=== PATIENT | female | born 1945 | race Caucasian/White ===

== ENCOUNTER 2024-11-13 11:24 | Outpatient (AMB) | payer OTHER, SELFPAY ==
--- NOTE | 2024-11-13 11:28 | A.OFFPC_ITS ---
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 Manager Required: No Accompanied by: Self / Same As Patient Allergies codeine Allergy (Mild, Verified 11/13/24 11:45) Nausea latex Allergy (Mild, Verified 11/13/24 11:45) Rash levofloxacin (From Levaquin) Allergy (Mild, Verified 11/13/24 11:45) Nausea and Vomiting methotrexate Allergy (Mild, Verified 11/13/24 11:45) Nausea morphine Allergy (Mild, Verified 11/13/24 11:45) advers reaction mupirocin (From Bactroban) Allergy (Mild, Verified 11/13/24 11:45) Rash Medication List - Last Reconciled 11/13/24 by Tito Collier MD esomeprazole magnesium (Nexium) 40 mg PO DAILY gabapentin 400 mg PO TID hydrochlorothiazide 25 mg PO DAILY leflunomide 20 mg PO DAILY lisinopril 40 mg PO DAILY Tobacco use date assessed: 11/13/24 Fall risk assessment: 2 + Falls in past year Last assessed Fall Risk: 11/13/24 Dental Screening Dental Screen Date: 11/13/24 Did you have a dental visit in the last 12 months?: No Did you have a dental problem in the last 6 months where you did not have access to dental care?: No Was dental information given to patient?: No HPI HPI Comments History of Present Illness Details History of Present Illness The patient is a 79-year-old female presenting for establishment of care and management of multiple chronic conditions. Gastroesophageal Reflux Disease (GERD): - Long-standing GERD managed with esomep razole magnesium, occasional dysphagia, multiple endoscopies performed. Neuropathy: - Neuropathy confirmed by specialist, si gnificant symptoms in feet, managed with gabapentin. Scoliosis and Spinal Stenosis: - Scoliosis and spinal stenosis causing neck and back pain, advised to limit neck movement due to audible popping. Rheumatoid Arthritis: - Long-standing rheumatoid arthritis wit h hand and foot involvement, tried leflunomide and Rinvoq with limited success. Hypertension: - Managed with hydrochlorothiazide and l isinopril. Cataracts: - Early-stage cataracts, no immediate ruiz rgical intervention needed. Pterygium: - Pterygium likely due to sun exposure, no current treatment required. History of Shingles: - Shingles four years ago, resulting in leg scarring. Health Maintenance Review of Systems - Gastrointestinal: Reports occasional d ysphagia. - Neurological: Reports weakness in arms and legs during grocery shopping, difficulty with full extension of arms due to pain. - Musculoskeletal: Reports significant p ain and deformity in hands and feet due to rheumatoid arthritis. - Ophthalmologic: Reports double vision and early-stage cataracts. 10-point ROS reviewed and negative excep t as noted in HPI Allergies Codeine Latex Levofloxacin Methotrexate Morphine mupirocin Medications - Esomeprazole magnesium (Nexium) for Ga stroesophageal Reflux Disease (GERD) - Gabapentin for neuropathy - Hydrochlorothiazide for hypertension - Lisinopril for hypertension - Leflunomide for rheumatoid arthritis Medication History - Rinvoq for rheumatoid arthritis, tried with limited success Past Medical History - Gastroesophageal Reflux Disease (GERD) - Neuropathy - Scoliosis - Spinal Stenosis - Rheumatoid Arthritis - Hypertension - Cataracts - Pterygium - History of Shingles Past Surgical History - Left foot reconstruction with screws, nuts, bolts, and plates - Knee replacements, one 10 years ago an d the other 4 years ago Social History - The patient is a , having lost he r to pancreatic and bone cancer. - She has moved from [place] to live with her daughter in [place]. - The patient has a history of being phy sically active, previously a bowler, but now limited due to arthritis. - She uses a cane for mobility due to sc oliosis and rheumatoid arthritis. Physical Exam General: No apparent distress. Alert and oriented x 3. Head:Normocephalic, atraumatic Eyes: Pupils equal, round, and reactive to light. Presence of pterygium in the right eye. Extraocular movements intact Throat: Oropharynx clear. Missing teeth noted.oropharynx clear. Mucus membranes moist Neck: Supple. No lymphadenopathy. Audible popping noted.left anterior descending artery distention. No jugular vein distention. No bruit. Cardiovascular: Regular rate and rhythm. Normal S1 and S2. No murmurs.murmurs, rubs, or gallops Lungs: Clear to auscultation bilaterally. Breath sounds equal bilaterally. No rales, ronchi, or wheezes. Abdomen: Non-tender. Non-distended. Bowel sounds auscultated. No masses.hepatosplenomegaly. No mass/rebound/guarding Extremities: No clubbing, cyanosis, or edema. Presence of rheumatoid nodules on the right hand (pinky finger and thumb) and left hand (wrist and pointer finger). Protrusion of bone on the midfoot of the left foot. Crossover toe noted.clubbing, cyanosis, and edema. 2+ pulses Neuro: Central nerves II-XII grossly intact. Motor/sensory intact. Reflexes 2+. Gait normal with the use of a cane due to scoliosis and rheumatoid arthritis. Skin: Warm, dry, and intact. No rash. Scars from previous shingles noted on legs . Discussion Notes I discussed the patient's current medications and the need for referrals to podiatry and rheumatology. We also talked about the possibility of pain management options, including epidurals, but the patient decided to hold off for now. I will review her previous lab work and bone density test results from [place] and determine if further testing is needed. The patient was advised to follow up with an traditional chinese herbalist for her vision issues and to monitor the pterygium with an assembler fishing floats. Plan 1. Gastro-esophageal reflux disease with out esophagitis K21.9 - Continue esomeprazole magnesium for ma nagement. 2. Polyneuropathy, unspecified G62 .9 - Continue gabapentin for symptom manage ment. 3. Scoliosis, unspecified M41.9 - Monitor symptoms and consider pain man agement options if needed. 4. Rheumatoid arthritis, unspecified M06.9 HCC 40 - Referral to rheumatology for further m anagement and potential adjustment of medications. 5. Essential (primary) hypertension I10 - Continue current antihypertensive latoya men with hydrochlorothiazide and lisinopril. 6. Unspecified cataract H26.9 - Follow up with traditional chinese herbalist for vision assessment and monitoring. 7. Unspecified pterygium of unspecified eye H11.009 - Monitor with assembler fishing floats, no immed iate intervention required. 8. Personal history of other infectious and parasitic diseases Z86.19 - No current treatment required, monitor for any recurrence. Treatment Summary Anticapatory Guidance Patient Instructions - Continue taking your current medicatio ns as prescribed. - Follow up with the aeronautical drafter and rheu matologist as referred. - Schedule an appointment with an optome trist for your vision issues. - Monitor the pterygium with an ophthalm ologist. - Contact the clinic if you experience a ny new or worsening symptoms. PFSH Family History (Updated 11/13/24 @ 11:53 by Lillian Padgett MA) Father Diabetes Heart attack Mother Diabetes Stroke Social History (Updated 11/13/24 @ 11:33 by Lillian Padgett MA) Housing: House Alcohol intake: current Alcohol intake frequency: does not drink Patient Tobacco Use Status: Never used Tobacco service: No Current occupational status: retired and disabled Cognitive needs: Yes (cane and walker) Hearing needs: No Vision needs: Yes (rx glasses) Questionnaire PHQ-9 Over the last 2 weeks, how often have you been bothered by any of the following problems? 1. Little interest or pleasure in doing things: not at all 2. Feeling down, depressed, or hopeless: not at all 3. Trouble falling or staying asleep, or sleeping too much: not at all 4. Feeling tired or having little energy: nearly every day 5. Poor appetite or overeating: not at all 6. Feeling bad about yourself - or that you are a failure or have let yourself or your family down: not at all 7. Trouble concentrating on things, such as reading the newspaper or watching television: not at all 8. Moving or speaking so slowly that other people could have noticed. Or the opposite - being so fidgety or restless that you have been moving around a lot more than usual: not at all 9. Thoughts that you would be better off or of hurting yourself in some way: not at all Total score: 3 Depression Screening Interpretation: Negative Depression Screening Done: Yes Source: Developed by Drs. Omari Keenan, Philly Doyle, See Saucedo and colleagues, with an educational eligio from [employer]. Thrive Questionnaire Date Thrive assessed: 11/13/24 I am a: Patient What is your living situation today?: I have a steady place to live Within the past 12 months, did the food you bought not last and you didn't have the money to get more?: I choose not to answer this question Within the past 12 months, did you worry whether your food would run out before you got money to buy more?: Never true Do you have trouble paying for medicines?: No Do you have trouble getting transportation to medical appointments?: No Do you have trouble paying your heating and electricity bill?: No Do you have trouble taking care of your child, family member or friend?: No Are you currently unemployed and looking for a job?: No Are you interested in more education?: No Please select the resources that you would like help with: None Currently or been in a relationship where the following occur: No concerns reported THRIVE Score: 0 AUDIT C Alcohol Use Questionnaire (AUDIT-C) 1. How often do you have a drink containing alcohol?: Never 3. How often do you have six or more drinks on one occasion?: Never Total Score: 0 TONY-7 AMB Questionnaire TONY-7 Date TONY - 7 assessed: 11/13/24 Feeling nervous, anxious, or on edge: 0 = Not at all Not being able to stop or control worryin = Not at all Worrying too much about different things: 0 = Not at all Trouble relaxin = Not at all Being so restless that it is hard to sit still: 0 = Not at all Becoming easily annoyed or irritable: 0 = Not at all Feeling afraid as if something awful might happen: 0 = Not at all Total TONY-7 score (0-4 normal; 5-9 mild; 10-14 moderate; 15-21 severe): 0 Source: Developed by Drs. Omari Keenan, Philly Doyle, See Saucedo and colleagues, with an educational eligio from [employer]. Physical exam (Primary Care) Tobacco/Smoking Status: Tobacco use Status Tobacco use date assessed 11/13/24 11/13/24 11:33 Patient Tobacco Use Status Never used Tobacco 11/13/24 11:33 PHQ-9: PHQ-9 Score PHQ-9: Total score 3 11/13/24 11:33 Depression Screening Interpretation: Negative Thrive Assessment: Date of Thrive Assessment Date Thrive assessed 11/13/24 11/13/24 11:33 Currently or been in a relationship where the following occur: No concerns reported Coding Level of Care Code New Pt Level 3 (77475) Diagnoses Encounter to establish care with new provider Z76.89 Routine lab draw Z01.89 Encounter for screening, unspecified Z13.9 Counseling, unspecified Z71.9 Primary hypertension I10 Hypertension type: primary hypertension Gastroesophageal reflux disease without esophagitis K21.9 Esophagitis presence: without esophagitis Rheumatoid arthritis involving multiple sites, unspecified whether rheumatoid factor present M06.9 Rheumatoid arthritis location: multiple sites Rheumatoid factor presence: unspecified presence Class 1 obesity E66.811 Scoliosis M41.9 Scoliosis type: unspecified scoliosis Spinal region: unspecified Rheumatoid nodules M06.30 History of ankle surgery Z98.890 Cataract H26.9 Cataract type: age-related Age-related cataract type: unspecified Laterality: unspecified laterality Impaired gait and mobility R26.89 Use of cane as ambulatory aid Z99.89 Assessment & Plan Assessment & Plan (1) Encounter to establish care with new provider: Code(s): Z76.89 - Persons encountering health services in other specified circumstances (2) Routine lab draw: Code(s): Z01.89 - Encounter for other specified special examinations (3) Encounter for screening, unspecified: Code(s): Z13.9 - Encounter for screening, unspecified (4) Counseling, unspecified: Code(s): Z71.9 - Counseling, unspecified (5) Hypertension: Code(s): I10 - Essential (primary) hypertension Qualifiers: Hypertension type: primary hypertension Qualified Code(s): I10 - Essential (primary) hypertension (6) GERD (gastroesophageal reflux disease): Code(s): K21.9 - Gastro-esophageal reflux disease without esophagitis Qualifiers: Esophagitis presence: without esophagitis Qualified Code(s): K21.9 - Gastro-esophageal reflux disease without esophagitis (7) Rheumatoid arthritis: Code(s): M06.9 - Rheumatoid arthritis, unspecified Qualifiers: Rheumatoid arthritis location: multiple sites Rheumatoid factor presence: unspecified presence Qualified Code(s): M06.9 - Rheumatoid arthritis, unspecified (8) Class 1 obesity: Code(s): E66.811 - Obesity, class 1 (9) Scoliosis: Code(s): M41.9 - Scoliosis, unspecified Qualifiers: Scoliosis type: unspecified scoliosis Spinal region: unspecified (10) Rheumatoid nodules: Code(s): M06.30 - Rheumatoid nodule, unspecified site (11) History of ankle surgery: Code(s): Z98.890 - Other specified postprocedural states (12) Cataract: Code(s): H26.9 - Unspecified cataract Qualifiers: Cataract type: age-related Age-related cataract type: unspecified Laterality: unspecified laterality (13) Impaired gait and mobility: Code(s): R26.89 - Other abnormalities of gait and mobility (14) Use of cane as ambulatory aid: Code(s): Z99.89 - Dependence on other enabling machines and devices Plan Orders: Orders Vitamin D 1,25 dihydroxy Today Z13.9 - Encounter for screening, unspecified, Z76.89 - Persons encountering health services in other specified circumstances Hepatitis C Antibody Today Z13.9 - Encounter for screening, unspecified, Z76.89 - Persons encountering health services in other specified circumstances Hepatitis B Surface Antigen Today Z13.9 - Encounter for screening, unspecified, Z76.89 - Persons encountering health services in other specified circumstances Hepatitis B Surface Antibody Today Z13.9 - Encounter for screening, unspecifi ed, Z76.89 - Persons encountering health services in other specified circumstances Hemoglobin A1c Today Z13.9 - Encounter for screening, unspecified, Z76.89 - Persons encountering health services in other specified circumstances Complete Blood Count Auto Diff Today Z13.9 - Encounter for screening, unspecified, Z76.89 - Persons encountering health services in other specified circumstances Vitamin B12 and Folate Today Z13.9 - Encounter for screening, unspecified, Z76.89 - Persons encountering health services in other specified circumstances UA CC w/rflx Micro + Cult Today Z13.9 - Encounter for screening, unspecified, Z76.89 - Persons encountering health services in other specified circumstances Magnesium Today Z13.9 - Encounter for screening, unspecified, Z76.89 - Persons encountering health services in other specified circumstances HIV Ab/Ag Today Z13.9 - Encounter for screening, unspecified, Z76.89 - Persons encountering health services in other specified circumstances Comprehensive Met. Panel Today Z13.9 - Encounter for screening, unspecified, Z76.89 - Persons encountering health services in other specified circumstances Referrals Podiatry Referral M06.9 - Rheumatoid arthritis, unspecified Ophthalmology Referral H26.9 - Unspecified cataract Rheumatology Referral M06.9 - Rheumatoid arthritis, unspecified
[2024-11-13 11:54] VITALS: BP 120/80; PULSE 66; RESP 16; TEMP 36.5; O2SAT 94; BMI 30.2
--- OUTSIDE RECORDS SUMMARY | 2024-11-13 15:35 | XMS_ITS ---
Author Name Chantel FloresNatalie Address [address] [place] [id number] Phone [phone] Organization [facility] Care Team Providers Care Calendar Control Clerk [facility] Name Role Phone Natalie Golden Unavailable [phone] Reason for Referral Not Available Allergies, adverse reactions, alerts Allergen Type Reaction Severity Status Onset Date Latex Allergy to substance (disorder) rash Unknown Active N/A Levaquin Allergy to substance (disorder) rash , dizziness , headache Unknown Active N/A Codeine Allergy to substance (disorder) nausea Unknown Active N/A Sulfa Allergy to substance (disorder) vomitting Unknown Active N/A Morphine Allergy to substance (disorder) General anesthesia Unknown Active N/A Methotrexate Allergy to substance (disorder) nausea , stomach cramps Unknown Active N/A Tobrex Allergy to substance (disorder) Burning Unknown Active N/A Bactroban Allergy to substance (disorder) swelling Unknown Active N/A Bacitracin Allergy to substance (disorder) Swelling, Burning Unknown Active N/A AK-Tracin Allergy to substance (disorder) swelling burning Unknown Active N/A History of medication use Medication Class Instructions Start Date End Date Leflunomide 20 mg Tab 1 tablet orally daily 2024-06-08 No Data Available Lisinopril 40 mg Tab 1 tablet orally daily 2024-06-08 No Data Available Atorvastatin Calcium 40 mg Tab 1 tablet orally daily in the evening 2024-06-08 2024-07-06 NexIUM 40 mg Cap delayed rel 1 capsule orally daily 23-06-09 No Data Available Gabapentin 400 mg Cap 1 capsule orally 3 times per day 2024-06-08 No Data Available hydroCHLOROthiazide 25 mg Tab TAKE 1 TABLET DAILY 2024 No Data Available Tylenol 8hr Arthritis Pain 6 50 mg Tab ER 1 tablet orally twice a day, prn 2024-06-08 No Data Available Multivitamin 1 tab PO Daily 2024-06-08 No Data Avail able Probiotic 1 tablet daily 2024-06-08 No Data Avail able Atorvastatin Calcium 40 mg Tab 1 tab PO daily No Data Available Rinvoq 15 mg Tab ER 24hr Take 1 tab by m outh daily 2024-08-04 No Data Available Ezetimibe 10 mg Tab 1 tablet orally daily 2024-10-06 No Data Available Problem List Problem Status Onset Date Resolved Date Synopsis Lumbar radicular pain Active 2024-06-08 N/A N/A Lumbar spondylosis Active 2024-06-08 N/A N/A Hyperlipidemia Active 2024-06-08 N/A N/A Osteoporosis Active 2024-06-08 N/A N/A Left foot drop Active 2024-06-08 N/A N/A Rheumatoid arthritis without rheumatoid factor of multiple sites without organ or systems involvement Active 2024-06-08 N/A N/A Encounters Encounters Type Facility Date of Service Diagnosis/Co mplaint new patient, moderate complexity office visit [facility] 06/08/2024 Rheumatoid arthritis without rheumatoid factor, unspecified sitePain in right hipPain in left hipSpinal stenosis, lumbar region without neurogenic claudicationRepeated fallsAsymptomatic menopausal stateDisorder of kidney and ureter, unspecified new patient, moderate complexity office visit [facility] 06/08/2024 Rheumatoid arthritis without rheumatoid factor, unspecified siteAsymptomatic menopausal state moderate complexity office visit [facility] 07/06/2024 Rheu arthrit w rheu factor o f unsp ank/ft w/o org/sys involvAbnormal results of kidney function studiesAge-related osteoporosis without current pathological fractureOther inadequate housing moderate complexity office visit [facility] 07/06/2024 Rheumatoid arthritis without rheumatoid factor, unspecified site Vital Signs Date of Collection Vitals 2024-06-08 14:00:00 Height - 165.1 cmWei ght - 76.66 kgBody Mass Index (BMI) - 28.12 kg/m2BP Diastolic - 68.0 mm[Hg]BP Systolic - 126.0 mm[Hg]Heart Rate - 81.0 /minBody Temperature - 16.67 CelO2 % BldC Oximetry - 94.0 %Pain Scale - 8.0 {score} 2024-07-06 14:20:00 BP Diastolic - 76.0 mm[Hg]BP Systolic - 116.0 mm[Hg]Heart Rate - 95.0 /minBody Temperature - 36.39 CelO2 % BldC Oximetry - 93.0 %Pain Scale - 10.0 {score} Social History Social History Social History Observation Description Effec tive Time Current Smoking Status Never smoker 2024-10-30 7 Sex Female History of Procedures Procedures Service Procedure code Service date Servicing provider Phone# new patient, moderate complexity office visit [id number] 2024-06-08 No Data Available No Data Availa ble (Add-on code) Visit complxty inherent to EM and management associated with medical care services that serve as the continuing focal point for all needed health care services [address] [id number] 2024-06-08 No Data Available No Data Availa ble moderate complexity office visit [id number] 2024-07-06 No Data Available No Data Availa ble (Add-on code) Visit complxty inherent to EM and management associated with medical care services that serve as the continuing focal point for all needed health care services [address] [id number] 2024-07-06 No Data Available No Data Availa ble Relevant diagnostic tests and/or laboratory data Laboratory Results Test Result Units Ref low Ref high Date Location Source MIKE SCREEN, IFA, W/REFL TITE R AND PATTERN MIKE SCREEN, IFA POSITIVE No Data Available NEGATIVE NEGATIVE 06-12 [facility] [address] [address] Phone: No Data Available MIKE SCREEN, IFA POSITIVE No Data Available NEGATIVE NEGATIVE 06-12 [facility] [address] [address] Phone: No Data Available ANTINUCLEAR ANTIBODIES TITER AND PATTERN MIKE TITER 1:40 No Data Available N/A N/A 06-12 [facility] [address] [address] Phone: No Data Available MIKE TITER 1:40 No Data Available N/A N/A 06-12 [facility] [address] [address] Phone: No Data Available MIKE PATTERN Cytoplasmic No Data Available N/A N/A 06-12 [facility] [address] [address] Phone: No Data Available MIKE PATTERN Cytoplasmic No Data Available N/A N/A 06-12 [facility] [address] [address] Phone: No Data Available MIKE TITER 1:80 No Data Available N/A N/A 06-12 [facility] [address] [address] Phone: No Data Available MIKE TITER 1:80 No Data Available N/A N/A 06-12 [facility] [address] [address] Phone: No Data Available MIKE PATTERN Nuclear, Homogeneous No Data Available N/A N/A 06-12 [facility] [address] [address] Phone: No Data Available MIKE PATTERN Nuclear, Homogeneous No Data Available N/A N/A 06-12 [facility] [address] [address] Phone: No Data Available C TELOPEPTIDE (CTX) C TELOPEPTIDE (CTX) 566 pg/mL N/A N/A 06-12 [facility] s/[address] [address] Phone: No Data Available C TELOPEPTIDE (CTX) 566 pg/mL N/A N/A 06-12 [facility] , [address] [place] [address] Phone: No Data Available C-REACTIVE PROTEIN C-REACTIVE PROTEIN 3.2 mg/L No Data Available 8.0 06-12 [facility] [address] [address] Phone: No Data Available C-REACTIVE PROTEIN 3.2 mg/L No Data Available 8.0 06-12 [facility]-[place] [address] Phone: No Data Available CALCIUM CALCIUM 10.3 mg/dL 8.6 10.4 06-12 [facility] [address] [address] Phone: No Data Available CALCIUM 10.3 mg/dL 8.6 10.4 06-12 [facility] [address] [address] Phone: No Data Available CBC (INCLUDES DIFF/PLT) WHITE BLOOD CELL COUNT 4.9 Thousand/uL 3.8 10.8 06-12 [facility] [address] [address] Phone: No Data Available WHITE BLOOD CELL COUNT 4.9 Thousand/uL 3.8 10.8 06-12 [facility] [address] [address] Phone: No Data Available RED BLOOD CELL COUNT 4.25 Million/uL 3.80 5.10 06-12 [facility] [address] [address] Phone: No Data Available RED BLOOD CELL COUNT 4.25 Million/uL 3.80 5.10 06-12 [facility] [address] [address] Phone: No Data Available HEMOGLOBIN 12.3 g/dL 11.7 15.5 06-12 [facility] [address] [address] Phone: No Data Available HEMOGLOBIN 12.3 g/dL 11.7 15.5 06-12 [facility] [address] [address] Phone: No Data Available HEMATOCRIT 39.9 % 35.0 45.0 06-12 [facility] [address] [address] Phone: No Data Available HEMATOCRIT 39.9 % 35.0 45.0 06-12 [facility] [address] [address] Phone: No Data Available MCV 93.9 fL 80.0 100.0 06-12 [facility] [address] [address] Phone: No Data Available MCV 93.9 fL 80.0 100.0 06-12 [facility] [address] [address] Phone: No Data Available MCH 28.9 pg 27.0 33.0 06-12 [facility] [address] [address] Phone: No Data Available MCH 28.9 pg 27.0 33.0 06-12 [facility] [address] [address] Phone: No Data Available MCHC 30.8 g/dL 32.0 36.0 06-12 [facility] [address] [address] Phone: No Data Available MCHC 30.8 g/dL 32.0 36.0 06-12 [facility] [address] [address] Phone: No Data Available RDW 13.1 % 11.0 15.0 06-12 [facility] [address] [address] Phone: No Data Available RDW 13.1 % 11.0 15.0 06-12 [facility] [address] [address] Phone: No Data Available PLATELET COUNT 278 Thousand/uL 140 400 202 06-12 [facility] [address] [address] Phone: No Data Available PLATELET COUNT 278 Thousand/uL 140 400 202 06-12 [facility] [address] [address] Phone: No Data Available MPV 12.1 fL 7.5 12.5 06-12 [facility] [address] [address] Phone: No Data Available MPV 12.1 fL 7.5 12.5 06-12 [facility] [address] [address] Phone: No Data Available ABSOLUTE NEUTROPHILS 3004 cells/uL 1500 7800 06-12 [facility] [address] [address] Phone: No Data Available ABSOLUTE NEUTROPHILS 3004 cells/uL 1500 7800 06-12 [facility] [address] [address] Phone: No Data Available ABSOLUTE LYMPHOCYTES 1142 cells/uL 850 3900 06-12 [facility] [address] [address] Phone: No Data Available ABSOLUTE LYMPHOCYTES 1142 cells/uL 850 3900 06-12 [facility] [address] [address] Phone: No Data Available ABSOLUTE MONOCYTES 515 cells/uL 590 569 4783- 04-14 [facility] [address] [address] Phone: No Data Available ABSOLUTE MONOCYTES 515 cells/uL 184 238 5786- 04-14 [facility] [address] [address] Phone: No Data Available ABSOLUTE EOSINOPHILS 191 cells/uL 15 500 06-12 [facility] [address] [address] Phone: No Data Available ABSOLUTE EOSINOPHILS 191 cells/uL 15 500 06-12 [facility] [address] [address] Phone: No Data Available ABSOLUTE BASOPHILS 49 cells/uL 0 200 06-12 [facility] [address] [address] Phone: No Data Available ABSOLUTE BASOPHILS 49 cells/uL 0 200 06-12 [facility] [address] [address] Phone: No Data Available NEUTROPHILS 61.3 % N/A N/A 06-12 [facility] [address] [address] Phone: No Data Available NEUTROPHILS 61.3 % N/A N/A 06-12 [facility] [address] [address] Phone: No Data Available LYMPHOCYTES 23.3 % N/A N/A 06-12 [facility] [address] [address] Phone: No Data Available LYMPHOCYTES 23.3 % N/A N/A 06-12 [facility] [address] [address] Phone: No Data Available MONOCYTES 10.5 % N/A N/A 06-12 [facility] [address] [address] Phone: No Data Available MONOCYTES 10.5 % N/A N/A 06-12 [facility] [address] [address] Phone: No Data Available EOSINOPHILS 3.9 % N/A N/A 06-12 [facility] [address] [address] Phone: No Data Available EOSINOPHILS 3.9 % N/A N/A 06-12 [facility] [address] [address] Phone: No Data Available BASOPHILS 1.0 % N/A N/A 06-12 [facility] [address] [address] Phone: No Data Available BASOPHILS 1.0 % N/A N/A 06-12 [facility] [address] [address] Phone: No Data Available CREATININE CREATININE 0.99 mg/dL 0.60 1.00 06-12 [facility] [address] [address] Phone: No Data Available CREATININE 0.99 mg/dL 0.60 1.00 06-12 [facility] [address] [address] Phone: No Data Available EGFR 59 mL/min/1.73 m2 > OR = 60 > OR = 60 06-12 [facility] [address] [address] Phone: No Data Available EGFR 59 mL/min/1.73 m2 > OR = 60 > OR = 60 06-12 [facility] [address] [address] Phone: No Data Available CYCLIC CITRULLINATED PEPTIDE (CCP) AB (IGG) CYCLIC CITRULLINATED PEPTIDE (CCP) AB (IGG) 139 UNITS N/A N/A 06-12 [facility] [address] [address] Phone: No Data Available CYCLIC CITRULLINATED PEPTIDE (CCP) AB (IGG) 139 UNITS N/A N/A 06-[address] [facility] [address] [address] Phone: No Data Available HEPATIC FUNCTION PANEL PROTEIN, TOTAL 6.9 g/dL 6.1 8.1 06-12 [facility] [address] [address] Phone: No Data Available PROTEIN, TOTAL 6.9 g/dL 6.1 8.1 06-[address] [facility] [address] [address] Phone: No Data Available ALBUMIN 4.2 g/dL 3.6 5.1 06-12 [facility] [address] [address] Phone: No Data Available ALBUMIN 4.2 g/dL 3.6 5.1 06-12 [facility] [address] [address] Phone: No Data Available GLOBULIN 2.7 g/dL_(calc) 1.9 3.7 06-12 [facility] [address] [address] Phone: No Data Available GLOBULIN 2.7 g/dL_(calc) 1.9 3.7 06-12 [facility] [address] [address] Phone: No Data Available ALBUMIN/GLOBULI N RATIO 1.6 (calc) 1.0 2.5 06-12 [facility] [address] [address] Phone: No Data Available ALBUMIN/GLOBULI N RATIO 1.6 (calc) 1.0 2.5 06-12 [facility] [address] [address] Phone: No Data Available BILIRUBIN, TOTAL 0.6 mg/dL 0.2 1.2 06-12 [facility] [address] [address] Phone: No Data Available BILIRUBIN, TOTAL 0.6 mg/dL 0.2 1.2 06-12 [facility] [address] [address] Phone: No Data Available BILIRUBIN, DIRECT 0.1 mg/dL N/A N/A 06-12 [facility] [address] [address] Phone: No Data Available BILIRUBIN, DIRECT 0.1 mg/dL N/A N/A 06-12 [facility] [address] [address] Phone: No Data Available BILIRUBIN, INDIRECT 0.5 mg/dL_(calc ) 0.2 1.2 06-12 [facility] [address] [address] Phone: No Data Available BILIRUBIN, INDIRECT 0.5 mg/dL_(calc ) 0.2 1.2 06-12 [facility] [address] [address] Phone: No Data Available ALKALINE PHOSPHATASE 95 U/L 37 153 06-12 [facility] [address] [address] Phone: No Data Available ALKALINE PHOSPHATASE 95 U/L 37 153 06-12 [facility] [address] [address] Phone: No Data Available AST 25 U/L 10 35 06-12 [facility] [address] [address] Phone: No Data Available AST 25 U/L 10 35 06-12 [facility] [address] [address] Phone: No Data Available ALT 13 U/L 6 29 06-12 [facility] [address] [address] Phone: No Data Available ALT 13 U/L 6 29 06-12 [facility] [address] [address] Phone: No Data Available HEPATITIS B CORE AB TOTAL HEPATITIS B CORE AB TOTAL NON-REACTIVE No Data Available NON NON 06-12 [facility] [address] [address] Phone: No Data Available HEPATITIS B CORE AB TOTAL NON-REACTIVE No Data Available NON NON 06-12 [facility] [address] [address] Phone: No Data Available HEPATITIS B SURFACE ANTIBODY QL HEPATITIS B SURFACE ANTIBODY QL NON-REACTIVE No Data Available NON NON 06-12 [facility] [address] [address] Phone: No Data Available HEPATITIS B SURFACE ANTIBODY QL NON-REACTIVE No Data Available NON NON 06-12 [facility] [address] [address] Phone: No Data Available HEPATITIS B SURFACE ANTIGEN W/REFL CONFIRM HEPATITIS B SURFACE ANTIGEN NON-REACTIVE No Data Available NON NON 06-12 [facility] [address] [address] Phone: No Data Available HEPATITIS B SURFACE ANTIGEN NON-REACTIVE No Data Available NON NON 06-12 [facility] [address] [address] Phone: No Data Available HEPATITIS C AB W/REFL TO HCV RNA, QN, PCR HEPATITIS C ANTIBODY NON-REACTIVE No Data Available NON NON 06-12 [facility] [address] [address] Phone: No Data Available HEPATITIS C ANTIBODY NON-REACTIVE No Data Available NON NON 06-12 [facility] [address] [address] Phone: No Data Available QUANTIFERON(R)-TB GOLD PLUS, 1 TUBE QUANTIFERON(R)- TB GOLD PLUS, 1 TUBE NEGATIVE No Data Available NEGATIVE NEGATIVE 06-12 [facility] [address] [address] Phone: No Data Available QUANTIFERON(R)- TB GOLD PLUS, 1 TUBE NEGATIVE No Data Available NEGATIVE NEGATIVE 06-12 [facility] [address] [address] Phone: No Data Available NIL 0.02 IU/mL N/A N/A 06-12 [facility] [address] [address] Phone: No Data Available NIL 0.02 IU/mL N/A N/A 06-12 [facility] [address] [address] Phone: No Data Available MITOGEN-NIL 7.47 IU/mL N/A N/A 06-12 [facility] [address] [address] Phone: No Data Available MITOGEN-NIL 7.47 IU/mL N/A N/A 06-12 [facility] [address] [address] Phone: No Data Available TB1-NIL 0.00 IU/mL N/A N/A 06-12 [facility] [address] [address] Phone: No Data Available TB1-NIL 0.00 IU/mL N/A N/A 06-12 [facility] [address] [address] Phone: No Data Available TB2-NIL 0.00 IU/mL N/A N/A 06-12 [facility] [address] [address] Phone: No Data Available TB2-NIL 0.00 IU/mL N/A N/A 06-12 [facility] [address] [address] Phone: No Data Available REFLEXIVE URINE CULTURE REFLEXIVE URINE CULTURE No Data Available No Data Available N/A N/A 06-12 [facility] [address] [address] Phone: No Data Available REFLEXIVE URINE CULTURE No Data Available No Data Available N/A N/A 06-12 [facility] [address] [address] Phone: No Data Available RHEUMATOID FACTOR RHEUMATOID FACTOR 86 IU/mL No Data Available 06-12 [facility] [address] [address] Phone: No Data Available RHEUMATOID FACTOR 86 IU/mL No Data Available 06-12 [facility] [address] [address] Phone: No Data Available SED RATE BY MODIFIED WESTERG OKSANA SED RATE BY MODIFIED WESTERGREN 28 mm/h N/A N/A 06-12 [facility] [address] [address] Phone: No Data Available SED RATE BY MODIFIED WESTERGREN 28 mm/h N/A N/A 06-12 [facility] [address] [address] Phone: No Data Available SJOGREN'S ANTIBODY (SS-A) SJOGREN'S ANTIBODY (SS-A) <1.0 NEG No Data Available N/A N/A 06-12 [facility] [address] [address] Phone: No Data Available SJOGREN'S ANTIBODY (SS-A) <1.0 NEG No Data Available N/A N/A 06-12 [facility] [address] [address] Phone: No Data Available THYROID PEROXIDASE ANTIBODIE S THYROID PEROXIDASE ANTIBODIES <1 No Data Available No Data Available 9 06-12 [facility] [address] [address] Phone: No Data Available THYROID PEROXIDASE ANTIBODIES <1 No Data Available No Data Available 9 06-12 [facility] [address] [address] Phone: No Data Available URINALYSIS, COMPLETE W/REFLE X TO CULTURE COLOR DARK YELLOW No Data Available YELLOW YELLOW 06-12 [facility] [address] [address] Phone: No Data Available COLOR DARK YELLOW No Data Available YELLOW YELLOW 06-12 [facility] [address] [address] Phone: No Data Available APPEARANCE CLEAR No Data Available CLEAR CLEAR 06-12 [facility] [address] [address] Phone: No Data Available APPEARANCE CLEAR No Data Available CLEAR CLEAR 06-12 [facility] [address] [address] Phone: No Data Available SPECIFIC GRAVITY 1.041 No Data Available 1.001 1.035 06-12 [facility] [address] [address] Phone: No Data Available SPECIFIC GRAVITY 1.041 No Data Available 1.001 1.035 06-12 [facility] [address] [address] Phone: No Data Available PH < OR = 5.0 No Data Available 5.0 8.0 06-12 [facility] [address] [address] Phone: No Data Available PH < OR = 5.0 No Data Available 5.0 8.0 06-12 [facility] [address] [address] Phone: No Data Available Glucose NEGATIVE No Data Available NEGATIVE NEGATIVE 06-12 [facility] [address] [place] [address] Phone: No Data Available Glucose NEGATIVE No Data Available NEGATIVE NEGATIVE 06-12 [facility] [address] [place] [address] Phone: No Data Available BILIRUBIN NEGATIVE No Data Available NEGATIVE NEGATIVE 06-12 [facility] [address] [address] Phone: No Data Available BILIRUBIN NEGATIVE No Data Available NEGATIVE NEGATIVE 06-12 [facility] [address] [address] Phone: No Data Available KETONES TRACE No Data Available NEGATIVE NEGATIVE 06-12 [facility] [address] [address] Phone: No Data Available KETONES TRACE No Data Available NEGATIVE NEGATIVE 06-12 [facility] [address] [address] Phone: No Data Available OCCULT BLOOD NEGATIVE No Data Available NEGATIVE NEGATIVE 06-12 [facility] [address] [address] Phone: No Data Available OCCULT BLOOD NEGATIVE No Data Available NEGATIVE NEGATIVE 06-12 [facility] [address] [address] Phone: No Data Available PROTEIN TRACE No Data Available NEGATIVE NEGATIVE 06-12 [facility] [address] [address] Phone: No Data Available PROTEIN TRACE No Data Available NEGATIVE NEGATIVE 06-12 [facility] [address] [address] Phone: No Data Available NITRITE NEGATIVE No Data Available NEGATIVE NEGATIVE 06-12 [facility] [address] [address] Phone: No Data Available NITRITE NEGATIVE No Data Available NEGATIVE NEGATIVE 06-12 [facility] [address] [address] Phone: No Data Available LEUKOCYTE ESTERASE NEGATIVE No Data Available NEGATIVE NEGATIVE 06-12 [facility] [address] [address] Phone: No Data Available LEUKOCYTE ESTERASE NEGATIVE No Data Available NEGATIVE NEGATIVE 06-12 [facility] [address] [address] Phone: No Data Available WBC 0-5 No Data Available N/A N/A 06-12 [facility] [address] [address] Phone: No Data Available WBC 0-5 No Data Available N/A N/A 06-12 [facility] [address] [address] Phone: No Data Available RBC 0-2 No Data Available N/A N/A 06-12 [facility] [address] [address] Phone: No Data Available RBC 0-2 No Data Available N/A N/A 06-12 [facility] [address] [address] Phone: No Data Available SQUAMOUS EPITHELIAL CELLS 0-5 No Data Available N/A N/A 06-12 [facility] [address] [address] Phone: No Data Available SQUAMOUS EPITHELIAL CELLS 0-5 No Data Available N/A N/A 06-12 [facility] [address] [address] Phone: No Data Available BACTERIA NONE SEEN No Data Available NONE SEEN NONE SEEN 06-12 [facility] [address] [address] Phone: No Data Available BACTERIA NONE SEEN No Data Available NONE SEEN NONE SEEN 06-12 [facility] [address] [address] Phone: No Data Available HYALINE CAST 0-5 No Data Available NONE SEEN NONE SEEN 06-12 [facility] [address] [address] Phone: No Data Available HYALINE CAST 0-5 No Data Available NONE SEEN NONE SEEN 06-12 [facility] [address] [address] Phone: No Data Available NOTE No Data Available No Data Available N/A N/A 06-12 [facility] [address] [address] Phone: No Data Available NOTE No Data Available No Data Available N/A N/A 06-12 [facility] [address] [address] Phone: No Data Available Functional Status No Information Mental Status No Information Assessments Date of Service Assessments 2024-06-08 14:00:00 # Seropositive rheum atoid arthritis, diagnosed in the by previous docking saw operator in [facility]. Was followed by Dr. Munoz in 2018 when patient relocated to [place]. Tried multiple treatments as detailed above including gold injections, Remicade, Enbrel, Humira, methotrexate oral and subQ. On leflunomide 20 mg daily since 2014. ==> Uncontrolled with high disease activity# Bilateral hip pain. Tried corticosteroid injections in the past. # Lumbar spinal stenosis with lumbar radiculopathy. Tried epidural injections. Was considering spinal surgery with ortho. # Osteoporosis, reportedly seen in past DEXA (unclear when). Postmenopausal. Right wrist fracture from mechanical fall. # Dcreased GFR. GFR 49 in 04/2024 labs. Unclear if has CKD. 2022 GFR was 77.. OTHER MEDICAL PROBLEMS: # History of bilateral TKA. # Hyperlipidemia# History of left foot drop# Scoliosis 2024-07-06 14:20:00 # Seropositive rheum atoid arthritis, diagnosed in the by previous docking saw operator in [facility]. 05/2024 labs with +MIKE 1:40 cytoplasmic and 1:80 nuclear, homogenous; RF 86; CCP 139. Was followed by Dr. Munoz in 2018 when patient relocated to [place]. Tried multiple treatments as detailed above including gold injections, Remicade, Enbrel, Humira, methotrexate oral and subQ. On leflunomide 20 mg daily since 2014. May be planning to relocate in mid 2024. ==> Uncontrolled with high disease activity and swelling on exam. Bothersome. # Osteoporosis, reportedly seen in past DEXA (unclear when). Postmenopausal. Right wrist fracture from mechanical fall ~2018==> 05/2024 DEXA T-scores of left and right femoral neck -2.7. Possible T9 compression on LVA. Needs osteoporosis treatment. However, may be planning to relocate in mid 2024. # Decreased GFR. GFR 49 in 04/2024 labs. Unclear if has CKD. 2022 GFR was 77.==> Improved. OTHER MEDICAL PROBLEMS: # Bilateral hip pain. Tried corticosteroid injections in the past. # Lumbar spinal stenosis with lumbar radiculopathy. Tried epidural injections. Was considering spinal surgery with ortho. # History of bilateral TKA. # Hyperlipidemia# History of left foot drop# Scoliosis# Hepatitis BsAb, BsAg, BcAb, and C antibody non-reactive in 05/2024 labs# Quantiferon-TB Gold negative in 05/2024 labs Plan of Care Date of Service Plans 2024-06-08 14:00:00 # Extensive review a nd discussion of her past medical history and records. # Active rheumatoid arthritis. Discussed various treatment options including biologics but will need new labs. She does have financial constraints with copays. Will see if she is a good candidate for rheumatoid arthritis study.# Patient may not be staying in [place] area and may plan to relocate by the end of the year. # Continue leflunomide 20 mg daily# Continue Tylenol 650 mg 1 tab twice daily as needed# Obtain Shingrix 2nd dose saran# Continue to follow up with ortho for lumbar spinal stenosis with radiculopathy. She was considering surgical intervention.# Order DEXA for osteoporosis screening. Patient is postmenopausal and has a history of left wrist fracture. Osteoporosis was reportedly seen in one of her past DEXAs but she does not recall when. # Monitor kidney function. Low GFR 49 in 04/2024 labs. Labs next week FASTINGDEXAClinical summary (MIPS) printed DEXA3-4 weeks Patient checked out by Annabelle Mcintyre 2024-06-08 15:07:42 [CBCD] CBC (w/Plts & Autodiff) 2024-06-08 15:07:42 ESR 2024-06-08 15:07:42 Liver Function Tests 2024-06-08 15:07:42 Quantiferon TB Gold test 2024-06-08 15:07:42 urinalysis complete w/reflex to culture 2024-06-08 15:07:42 Creatinine (Cr) w/eG FR (375) 2024-06-08 15:07:42 MIKE Screen, IFA, wit h Reflex to Titer and Pattern 2024-06-08 15:07:42 Thyroid Peroxidase A ntibodies (anti-TPO) (7238) 2024-06-08 15:07:42 Sj gren's Antibody (SS-A) (28640) 2024-06-08 15:07:42 Cyclic Citrullinated Peptide (CCP) Antibody (IgG) (95317) 2024-06-08 15:07:42 Rheumatoid Factor (1 56188F) 2024-06-08 15:07:42 C TELOPEPTIDE (CTX) (89616) 2024-06-08 15:07:42 C-Reactive Protein ( CRP) (4420) 2024-06-08 15:07:42 Hepatitis B Surface Antigen with Reflex to Confirmation (498) 2024-06-08 15:07:42 Hepatitis B Surface Antibody, Qualitative (499) 2024-06-08 15:07:42 Hepatitis B Core Ant ibody, Total (501) 2024-06-08 15:07:42 Hepatitis C Antibody with Reflex to HCV, RNA, Quantitative, Real-Time PCR (6472) 2024-06-08 15:07:42 serum calcium 2024-06-08 15:07:42 CBC with Differentia l and Platelets (6399) 2024-06-08 15:05:28 DEXA 2024-07-06 14:20:00 # Advanced and sever e rheumatoid arthritis with exam showing very prominent synovitis, especially on bilateral second MCPs. Discussed various treatment options for rheumatoid arthritis, however due to her issues with her current residence, she is not sure if she will be moving in the next month or so. # Side effects and benefits of Saniya (Xeljanz, Rinvoq) discussed with patient, including risks of TB reactivation, increased risk of infection including Shingles, liver toxicity, increased CV risks, leukopenia and thrombocytopenia, dyslipidemia, possible increased risk of cancer, and lack of efficacy. She has no contraindications to initiate a drug. All of patient's questions were answered. Patient agrees to proceed with treatment plan.# Discussed clinical trials and provided rheumatology clinics in [place] where she may be moving to to see if she would be candidate for these clinical trials since she does have financial challenges in affording medications# Start Rinvoq one tablet daily --> Provided x2 Rinvoq samples. # Continue leflunomide 20 mg daily# Continue Tylenol 650 mg 1 tab twice daily as needed# Obtain Shingrix 2nd dose saran# Reviewed her DEXA scan which shows a T-score -2.7 and she has history of right wrist fracture. She would benefit from anabolic agents. However due to financial challenges as well as uncertainty regarding where she would be living the next few weeks, we decided to focus on her rheumatoid arthritis treatment and we discussed treatment for her osteoporosis at the next visit or with her next docking saw operator should she leave this area. All of patient's questions were answered. # Continue to follow up with ortho for lumbar spinal stenosis with radiculopathy. She was considering surgical intervention.# Monitor kidney function. Low GFR 49 in 04/2024 labs that improved in 05/2024 labs. Labs in 4 weeks Samples Rinvoq x 2 bottles ([id number], 01/2026) Provided contact info to [facility] [place] printed5 weeks (patient will call to cancel if moving to [place])Patient checked out by Annabelle Leiva. Patient seen by Blanca Espitia PA-C and Natalie Golden MD Electronically signed by Blanca Espitia PA-C at 5:31 PM , July 06, 2024 (This note was dictated by speech recognition software. Minor errors in hand blocker may be present. Please do not hesitate to contact our office for clarifications or questions regarding the contents for this document) I saw and examined the patient with VANGIE. I agree with the above history and exam findings. I personally formulated the assessment and treatment plan with PA as described above. She has advanced and severe rheumatoid arthritis with exam showing very prominent synovitis, especially on bilateral second MCPs. We discussed various treatment options for rheumatoid arthritis, however due to her issues with her current residence, she is not sure if she will be moving in the next month or so. We decided to provide her samples with [employer]. Side effects discussed with her. She has no contraindications to initiate a drug. If she is tolerating well with improvement, she will obtain labs in 4 weeks and call us for additional samples. We also discussed clinical trials and provided rheumatology clinics in [place] where she may be moving to to see if she would be candidate for these clinical trials since she does have financial challenges in affording medications. Reviewed her DEXA scan which shows a T-score -2.7 and she has history of right wrist fracture. She would benefit from anabolic agents. However due to financial challenges as well as uncertainty regarding where she would be living the next few weeks, we decided to focus on her rheumatoid arthritis treatment and we discussed treatment for her osteoporosis at the next visit or with her next docking saw operator should she leave this area. All of patient's questions were answered. 2024-07-06 15:15:06 [CBCD] CBC (w/Plts & Autodiff) 2024-07-06 15:15:06 ESR 2024-07-06 15:15:06 Liver Function Tests 2024-07-06 15:15:06 Creatinine (Cr) w/eG FR (375) 2024-07-06 15:15:06 C-Reactive Protein ( CRP) (4420) 2024-07-06 15:15:06 Fasting Lipid Panel, Standard (7600) 2024-07-06 15:15:06 CBC with Differentia l and Platelets (6399) Health Concerns Date Concern 2024-07-06 Debby olea hed care with us in 05/2024 for rheumatoid arthritis and osteoporosis. She has previously tried many treatments and medications such as gold injections, Remicade, Enbrel (discontinued due to abdominal pain), Humira (discontinued due to injection site reactions), methotrexate oral from 1987 to 1991 (discontinued due to nausea, hair loss, GI issues), methotrexate subcutaneous injections.== INTERVAL HISTORY ==SEROPOSITIVE RHEUMATOID ARTHRITISBILATERAL HIP PAINOSTEOPOROSIS DECREASED GFR# Has hand joint pain/swelling, especially in bilateral 2nd MCPs. # 05/2024 labs show positive MIKE 1:40 cytoplasmic, 1:80 nuclear, homogeneous. Positive RF 86, CCP 139.# Continues leflunomide 20 mg daily# Takes Tylenol 650 2-2-2 on most days for her pain# Denies prior osteoporosis medications# No recent falls or fractures. # 05/2024 DEXA T-scores of left and right femoral neck -2.7. Possible T9 compression on LVA. # Recent GFR 59 improved from 49 in 04/2024. # Patient may not be staying in [facility] and may plan to relocate to [place] soon== RHEUM LABS/OTHER SEROLOGIES ==05/2024+ MIKE 1:40 cytoplasmic, 1:80 nuclear, homogeneous+ RF 86+ CCP 139SS-A negativeTPO negativeLABS REVIEWED TODAY# 05/2024. GFR 59. Calcium 10.3. Normal LFTs. ESR 28. UA with trace ketones, trace protein, 0-5 hyaline cast. Urine culture unremarkable. Normal WBC, Hgb, platelets. Positive MIKE 1:40 cytoplasmic, 1:80 nuclear, homogeneous. Positive RF 86, CCP 139. CRP 3.2. Negative SS-A. Hepatitis BsAb, BsAg, BcAb, and C antibody non-reactive. CTX 566. TPO negative. Quantiferon-TB Gold negative. -----== RHEUM LABS/OTHER SEROLOGIES ==05/2024+ MIKE 1:40 cytoplasmic, 1:80 nuclear, homogeneous+ RF 86+ CCP 139SS-A negativeTPO negative10/2022TPO negative== PRIOR LABS ==# 04/2024. GFR 49. Calcium 10.2. Normal 173, HDL 60, TGL 78, LDL 96. # 03/2024. LDL 113, otherwise normal TC 187, HDL 57, TGL 80. CRP 5.9. # 10/2023. TSH 0.08. FT4 1.1, FT3 3.1. # 08/2023. LDL 111, otherwise normal TC 195, HDL 64, TGL 95. Normal GFR 72. Calcium 10.3. PTH 59. Normal LFTs. FT4 0.7, otherwise normal FT3 2.7, TSH 1.66. Normal WBC, Hgb, platelets. UA unremarkable. Vitamin D 25OH level 53. # 10/2022. PTH 74. TSH 0.06, otherwise normal T4 6.4, FT4 1, T3 32. TPO negative. # 09/2022. TC 202, LDL 122, otherwise normal HDL 54, TGL 143. Normal GFR 77. Calcium 10.5. Normal LFTs. TSH 0.13. Normal WBC, Hgb, platelets. UA with 1+ leukocyte esterase, 6-10 WBC. Vitamin D 25OH level 59. # 08/2022. Urine culture unremarkable. # 05/2022. Normal GFR 61. Calcium 9.8. Normal LFTs. UA unremarkable. PTT 28. Normal CBC. INR 1, PT 10.1. == PRIOR IMAGING/STUDIES ==# 03/2019 MRI Cervical Spine: Degenerative changes of the cervical spine with up to moderate spinal canal narrowing at C6-C7. Mild to moderate spinal canal narrowing at C5-C6. High-grade foraminal narrowing on the right at C6-C7. Moderate foraminal narrowing on the left at C4-C5, on the right at C5-C6, and on the left at C6-C7. == ALLERGIES ==Latex = rashLevaquin = rash , dizziness , headache == PRIOR MEDICATIONS ==Codeine = nausea Sulfa = vomiting Morphine = General anesthesia Methotrexate = nausea , stomach cramps Tobrex = Burning Bactroban = swelling Bacitracin = Swelling, Burning AK-Tracin = swelling burning Gold injections = in the -methotrexate oral (~1470-1859) = nausea, hair loss, GI issuesmethotrexate subQ = unclear why she discontinuedRemicade = unclear why she discontinuedEnbrel = abdominal painHumira (last injection around 2015) = abdominal pain due to large needles and injection site reaction == MEDICATIONS ==Reviewed with patient, see list in chart includes:# Leflunomide 20 mg Tab si tablet orally daily (started in 2014)Atorvastatin Calcium 40 mg Tab si tab PO daily Gabapentin 300 mg Cap si capsule orally 2 times per dayhydroCHLOROthiazide 25 mg Tab sig: TAKE 1 TABLET DAILYLisinopril 40 mg Tab si tablet orally dailyNexIUM 40 mg Cap delayed rel si capsule orally daily Multivitamin si tab PO Daily Probiotic si tablet daily Tylenol 8hr Arthritis Pain 650 mg Tab ER si tablet orally twice a day, prn
== END 2024-11-13 12:40 | disposition home or self-care (01) ==
LOC: HO.HMCFMS 11:25
PROVIDERS: PCP Student in an Organized Health Care Education/Training Program; Visit Provider Student in an Organized Health Care Education/Training Program
DX: I10 Essential (primary) hypertension (principal); K21.9 Gastro-esophageal reflux disease without esophagitis; M06.9 Rheumatoid arthritis, unspecified; E66.811 Obesity, class 1; M41.9 Scoliosis, unspecified; M06.30 Rheumatoid nodule, unspecified site; Z98.890 Other specified postprocedural states; H26.9 Unspecified cataract; R26.89 Other abnormalities of gait and mobility; Z99.89 Dependence on other enabling machines and devices

== ENCOUNTER 2024-11-23 11:23 | Outpatient (AMB) | payer OTHER, SELFPAY ==
--- NOTE | 2024-11-23 11:34 | MHC.PC.OV ---
Vital Signs 11/23/24 11:36 Height 5 ft 1.89 in Weight 164 lb 8 oz BMI 30.2 BP 142/90 H Blood Pressure Location Rt brachial Position Sitting Respiration 16 Pulse 79 Pulse Source Pulse Oximeter Temp 97.9 F Temp Source Oral Pulse Oximetry (%) 95 Oxygen Delivery Method Room Air Intake Visit Reasons: 1 week follow up Intake Note: arthritis got worse. Internal Investigator Required: No Accompanied by: Self / Same As Patient Allergies codeine Allergy (Mild, Verified 11/23/24 11:35) Nausea latex Allergy (Mild, Verified 11/23/24 11:35) Rash levofloxacin (From Levaquin) Allergy (Mild, Verified 11/23/24 11:35) Nausea and Vomiting methotrexate Allergy (Mild, Verified 11/23/24 11:35) Nausea morphine Allergy (Mild, Verified 11/23/24 11:35) advers reaction mupirocin (From Bactroban) Allergy (Mild, Verified 11/23/24 11:35) Rash Tobacco use date assessed: 11/13/24 Fall risk assessment: 2 + Falls in past year Last assessed Fall Risk: 11/13/24 Dental Screening Dental Screen Date: 11/13/24 Did you have a dental visit in the last 12 months?: No Did you have a dental problem in the last 6 months where you did not have access to dental care?: No Was dental information given to patient?: No HPI HPI Comments History of Present Illness Details History of Present Illness The patient is a 79-year-old female presenting with the need for updated laboratory work. Did not receive the medical records from her previous provider so I could not look at her lab work the lab work that was performed 2 months ago Lab orders were placed on prior visit she will go to the lab today or sometime soon before our next appointment to go over lab results Review of Systems 10-point ROS reviewed and negative except as noted in HPI Physical Exam General: Well-appearing, in no acute distress. Vital signs: Within normal limits. HEENT: Normocephalic, atraumatic. PERRLA, EOMI. Conjunctiva clear, sclera anicteric. Oropharynx clear, mucous membranes moist. TMs intact bilaterally. Neck: Supple, no lymphadenopathy, no thyromegaly, no JVD or carotid bruits. Cardiovascular: RRR, normal S1/S2, no murmurs, rubs, or gallops. Peripheral pulses 2+ and symmetric. No edema. Respiratory: Lungs clear to auscultation bilaterally, no wheezes, rales, or rhonchi. Normal effort. Abdomen: Soft, non-tender, non-distended. Normoactive bowel sounds. No hepatosplenomegaly, no masses. MSK: Full range of motion, no joint swelling or deformity. Normal gait. She uses a cane Skin: Warm, dry, intact. No rashes, lesions, or pallor. Neuro: Alert and oriented x3. Cranial nerves II-XII intact. Strength 5/5 throughout. Sensation intact. Reflexes 2+ symmetric. Normal coordination and gait. Psych: Appropriate mood and affect. Normal judgment and insight. Plan Discussion Notes I discussed with the patient the importance of obtaining updated laboratory work to assess her current health status. We agreed to perform the blood draw today and reschedule the appointment to review the results. Patient was informed and verbally consented to the use of an ambient scribe for clinic note documentation during this visit. Patient Instructions - Get blood drawn today for updated laboratory work. - Reschedule appointment to discuss lab results. [facility] Family History Father Diabetes Heart attack Mother Diabetes Stroke Social History Housing: House Alcohol intake: current Alcohol intake frequency: does not drink Patient Tobacco Use Status: Never used Tobacco service: No Current occupational status: retired and disabled Cognitive needs: Yes (cane and walker) Hearing needs: No Vision needs: Yes (rx glasses) Questionnaire PHQ-9 Over the last 2 weeks, how often have you been bothered by any of the following problems? 1. Little interest or pleasure in doing things: not at all 2. Feeling down, depressed, or hopeless: not at all 3. Trouble falling or staying asleep, or sleeping too much: not at all 4. Feeling tired or having little energy: nearly every day 5. Poor appetite or overeating: not at all 6. Feeling bad about yourself - or that you are a failure or have let yourself or your family down: not at all 7. Trouble concentrating on things, such as reading the newspaper or watching television: not at all 8. Moving or speaking so slowly that other people could have noticed. Or the opposite - being so fidgety or restless that you have been moving around a lot more than usual: not at all 9. Thoughts that you would be better off or of hurting yourself in some way: not at all Total score: 3 Depression Screening Interpretation: Negative Depression Screening Done: Yes Source: Developed by Drs. Omari Keenan, Philly Doyle, See Saucedo and colleagues, with an educational eligio from [employer]. Thrive Questionnaire Date Thrive assessed: 11/13/24 I am a: Patient What is your living situation today?: I have a steady place to live Within the past 12 months, did the food you bought not last and you didn't have the money to get more?: I choose not to answer this question Within the past 12 months, did you worry whether your food would run out before you got money to buy more?: Never true Do you have trouble paying for medicines?: No Do you have trouble getting transportation to medical appointments?: No Do you have trouble paying your heating and electricity bill?: No Do you have trouble taking care of your child, family member or friend?: No Do you have trouble with day-to-day activities such as bathing, preparing meals, shopping, managing finances, etc.?: Yes Are you currently unemployed and looking for a job?: No Are you interested in more education?: No Please select the resources that you would like help with: None Currently or been in a relationship where the following occur: No concerns reported THRIVE Score: 0 AUDIT C Alcohol Use Questionnaire (AUDIT-C) 1. How often do you have a drink containing alcohol?: Never 3. How often do you have six or more drinks on one occasion?: Never Total Score: 0 TONY-7 AMB Questionnaire TONY-7 Date TONY - 7 assessed: 11/13/24 Feeling nervous, anxious, or on edge: 0 = Not at all Not being able to stop or control worryin = Not at all Worrying too much about different things: 0 = Not at all Trouble relaxin = Not at all Being so restless that it is hard to sit still: 0 = Not at all Becoming easily annoyed or irritable: 0 = Not at all Feeling afraid as if something awful might happen: 0 = Not at all Total TONY-7 score (0-4 normal; 5-9 mild; 10-14 moderate; 15-21 severe): 0 Source: Developed by Drs. Omari Keenan, Philly Doyle, See Saucedo and colleagues, with an educational eligio from [employer]. Physical exam (Primary Care) Vital Signs: Last Vital Signs Temp 97.9 F 11/23/24 11:36 Pulse 79 11/23/24 11:36 Resp 16 11/23/24 11:36 BP 142/90 H 11/23/24 11:36 Pulse Ox 95 11/23/24 11:36 Oxygen Delivery Method Room Air 11/23/24 11:36 BMI result Body Mass Index 30.2 Tobacco/Smoking Status: Tobacco use Status Tobacco use date assessed 11/13/24 11/23/24 11:35 Patient Tobacco Use Status Never used Tobacco 11/23/24 11:35 PHQ-9: PHQ-9 Score PHQ-9: Total score 3 11/23/24 11:35 Depression Screening Interpretation: Negative Thrive Assessment: Date of Thrive Assessment Date Thrive assessed 11/13/24 11/23/24 11:35 Currently or been in a relationship where the following occur: No concerns reported Coding Level of Care Code Est Pt Level 1 (13552) Diagnoses Encounter to discuss test results Z71.2 Assessment & Plan Assessment & Plan (1) Encounter to discuss test results: Code(s): Z71.2 - Person consulting for explanation of examination or test findings Plan
[2024-11-23 11:36] VITALS: BP 142/90; PULSE 79; RESP 16; TEMP 36.6; O2SAT 95; BMI 30.2
== END 2024-11-23 12:09 | disposition home or self-care (01) ==
LOC: HO.HMCFMS 11:24
PROVIDERS: Visit Provider Student in an Organized Health Care Education/Training Program
DX: Z71.2 Person consulting for explanation of examination or test findings (principal)

== ENCOUNTER → 2024-11-23 11:23 | Outpatient (BNVA) | payer OTHER, SELFPAY | PROVIDERS: Visit Provider Student in an Organized Health Care Education/Training Program | DX: Z71.2 Person consulting for explanation of examination or test findings (principal); Z13.31 Encounter for screening for depression | CPT/HCPCS: 96127; 99211 ==

== ENCOUNTER 2024-12-07 09:55 | Outpatient (AMB) | payer OTHER, SELFPAY ==
--- NOTE | 2024-12-07 10:06 | MHC.OFFVIS ---
Vital Signs 12/07/24 10:06 Height 5 ft 2 in Weight 164 lb BMI 30.0 Intake Visit Reasons: New Pt - Bilateral Foot Deformity due to RA Intake Note: Debby is a 79 year old Female who presents today as a New Patient for Evaluation of Bilateral Foot Pain. Hx of RA. Patient reports history of bilateral foot deformity as well as previous surgeries on both of her feet. She states she is interested in receiving orthotics. Allergies codeine Allergy (Mild, Verified 12/07/24 10:25) Nausea latex Allergy (Mild, Verified 12/07/24 10:25) Rash levofloxacin (From Levaquin) Allergy (Mild, Verified 12/07/24 10:25) Nausea and Vomiting methotrexate Allergy (Mild, Verified 12/07/24 10:25) Nausea morphine Allergy (Mild, Verified 12/07/24 10:25) advers reaction mupirocin (From Bactroban) Allergy (Mild, Verified 12/07/24 10:25) Rash Medication List - Last Reconciled 12/07/24 by Starr Moss DPM [custom orthotics Patient is in need of heel lifts and metatarsal pads formed to orthotics.] esomeprazole magnesium (Nexium) 40 mg PO DAILY gabapentin 400 mg PO TID hydrochlorothiazide 25 mg PO DAILY leflunomide 20 mg PO DAILY lisinopril 40 mg PO DAILY HPI Comments Details: This patient is a 79-year-old female with a past medical history as seen below who presents to the office for bilateral foot deformities. Patient was accompanied by her daughter who assisted in providing history. Patient states she has rheumatoid arthritis and states she would like to inquire about the process of obtaining new custom orthotics. She states she has been consistently using custom orthotics but her current ones are breaking down. She states if she ambulates without the custom orthotics she experiences pain to the feet. She denies any recent pedal injuries. Patient states she also experiences a limb length discrepancy due to left hip issues. She denies any other pedal concerns at this time. [facility] Medical History (Updated 12/07/24 @ 11:04 by Starr Moss DPM) Hallux valgus Pain in both feet Metatarsalgia Leg length discrepancy Hammertoe Pes planus Rheumatoid arthritis Family History Father Diabetes Heart attack Mother Diabetes Stroke Social History Housing: House Alcohol intake: current Alcohol intake frequency: does not drink Patient Tobacco Use Status: Never used Tobacco service: No Current occupational status: retired and disabled Cognitive needs: Yes (cane and walker) Hearing needs: No Vision needs: Yes (rx glasses) Review of Systems Const Details: Reports limb length discrepancy, pain in the ball of the feet, and flat foot deformity. All systems reviewed & are unremarkable except as noted in HPI and below Physical Exam Vital Signs: BMI result Body Mass Index 30.0 Extrem Other: B/L LE Focused Physical Exam: Derm: No open lesions, abrasions, or wounds noted. No ecchymosis or discoloration noted. No maceration noted. No clinical signs of infection. Vasc: DP/PT pulses palpable. CFT < 3 secs. Temp gradient warm to warm. Varicosities noted. No edema noted. Neuro: Protective sensation grossly intact. MSK: Palpable bony protrusion noted to the medial aspect of the left foot in the area of the TNJ. Pes planus foot type. Hammertoe deformities noted to lesser digits, worse to the right 2nd due to crossing over of the 1st. No crepitus noted. Mild HAV noted. Limb length discrepancy noted due to pain to the left side of the hip. Pain noted to the plantar aspect of the feet in the area of the metatarsal heads. Antalgic gait using a cane noted. Assessment & Plan Assessment & Plan (1) Rheumatoid arthritis: Code(s): M06.9 - Rheumatoid arthritis, unspecified Category: Medical (2) Pes planus: Code(s): M21.40 - Flat foot [pes planus] (acquired), unspecified foot Category: Medical Qualifiers: Laterality: bilateral Qualified Code(s): M21.41 - Flat foot [pes planus] (acquired), right foot; M21.42 - Flat foot [pes planus] (acquired), left foot (3) Hammertoe: Code(s): M20.40 - Other hammer toe(s) (acquired), unspecified foot Category: Medical Qualifiers: Laterality: bilateral Qualified Code(s): M20.41 - Other hammer toe(s) (acquired), right foot; M20.42 - Other hammer toe(s) (acquired), left foot (4) Leg length discrepancy: Code(s): M21.70 - Unequal limb length (acquired), unspecified site Category: Medical (5) Metatarsalgia: Code(s): M77.40 - Metatarsalgia, unspecified foot Category: Medical Qualifiers: Laterality: bilateral Qualified Code(s): M77.41 - Metatarsalgia, right foot; M77.42 - Metatarsalgia, left foot (6) Pain in both feet: Code(s): M79.671 - Pain in right foot; M79.672 - Pain in left foot Category: Medical (7) Hallux valgus: Code(s): M20.10 - Hallux valgus (acquired), unspecified foot Category: Medical Qualifiers: Laterality: bilateral Qualified Code(s): M20.11 - Hallux valgus (acquired), right foot; M20.12 - Hallux valgus (acquired), left foot Plan Discussed with patient the process of obtaining new custom orthotics. Provided patient with information about [facility] in order to make an appointment to be molded for custom orthotics. Faxed prescription to [facility] for custom orthotics. Recommend including metatarsal pads and heel lifts in orthotics. Advised patient to continue using her current custom orthotics and once the new ones are received, she can send her old ones in to be refurbished. Advised patient to avoid barefoot walking and to continue to wear supportive shoe gear. Recommended toe sleeves, but patient states she cannot tolerate it. RTC in 1 month after receiving new custom orthotics for re-evaluation. Medications: New [custom orthotics] Patient is in need of heel lifts and metatarsal pads formed to orthotics. 1 ea 0RF Rheumatoid Arthritis and pes planus foot type M06.9 - Rheumatoid arthritis, unspecified, M20.40 - Other hammer toe(s) (acquired), unspecified foot, M21.40 - Flat foot [pes planus] (acquired), unspecified foot, M21.70 - Unequal limb length (acquired), unspecified site, M77.40 - Metatarsalgia, unspecified foot, M79.671 - Pain in right foot, M79.672 - Pain in left foot Coding Level of Care Code New Pt Level 4 (71250) Diagnoses Rheumatoid arthritis M06.9 Pes planus of both feet M21.41; M21.42 Laterality: bilateral Hammer toes of both feet M20.41; M20.42 Laterality: bilateral Leg length discrepancy M21.70 Metatarsalgia of both feet M77.41; M77.42 Laterality: bilateral Pain in both feet M79.671; M79.672 Valgus deformity of both great toes M20.11; M20.12 Laterality: bilateral Time Spent (min) 48
== END 2024-12-07 10:28 | disposition home or self-care (01) ==
LOC: HO.HPODS 09:57
PROVIDERS: PCP Student in an Organized Health Care Education/Training Program; Visit Provider Student in an Organized Health Care Education/Training Program
DX: M06.9 Rheumatoid arthritis, unspecified (principal); M21.41 Flat foot [pes planus] (acquired), right foot; M21.42 Flat foot [pes planus] (acquired), left foot; M20.41 Other hammer toe(s) (acquired), right foot; M20.42 Other hammer toe(s) (acquired), left foot; M21.70 Unequal limb length (acquired), unspecified site; M77.41 Metatarsalgia, right foot; M77.42 Metatarsalgia, left foot; M79.671 Pain in right foot; M79.672 Pain in left foot; M20.11 Hallux valgus (acquired), right foot; M20.12 Hallux valgus (acquired), left foot
CPT/HCPCS: 99204

== ENCOUNTER 2024-12-07 09:55 | Outpatient (REF) | payer OTHER, SELFPAY ==
[2024-12-07 13:39] LABS: Appearance Urine Clear; Glucose Urine UA Negative (Negative); PH 5.0 (5.0-9.0); Specific Gravity - Urine >= 1.030 (1.005-1.025)
[2024-12-07 13:41] LABS: MANUAL DIFF FLAG NO
[2024-12-07 14:13] LABS: Hematocrit 41.2 % (37.0-47.0); Hemoglobin 12.7 g/dl (12.0-16.0); Imm Gran Abs Auto 0.03 X10*3/uL (0.00-0.03); Imm Gran Pct Auto 0.4 % (0.0-0.4); Lymphocytes Absolute Auto 1.7 X10*3/uL (1.2-4.9); Mean Corpuscular HGB Conc 30.8 g/dl (31.0-35.0); Mean Corpuscular Hemoglobin 29.1 pg (27.0-33.0); Mean Corpuscular Volume 94.3 fL (80.0-98.0); NRBC Abs Auto 0.000 X10*3/uL (0.0-0.012); NRBC Pct Auto 0.0 /100WBC (0.0-0.2); Platelet Count 289 X10*3/uL (160-400); Red Blood Count 4.37 X10*6/uL (4.20-5.50); White Blood Count 7.7 X10*3/uL (4.8-10.8)
[2024-12-07 18:45] LABS: Alanine Aminotransferase 11 U/L (0-31); Albumin Level 4.3 g/dL (3.5-5.0); Alkaline Phosphatase 91 U/L (39-117); Anion Gap 16 (12-20); Aspartate Amino Transferase 35 U/L (5-31); Blood Urea Nitrogen 31 mg/dL (9-16); Calcium 10.7 mg/dL (8.4-10.2); Carbon Dioxide 25 mmol/L (22-29); Chloride 107 mmol/L (96-108); Estimated Glomerular Filt Rate 54; Magnesium 2.0 mg/dL (1.6-2.6); Potassium 4.3 mmol/L (3.3-5.1); Sodium 144 mmol/L (135-145); Total Protein 7.5 g/dL (6.5-8.0)
[2024-12-07 18:58] LABS: Folate 17.3 ng/mL (> or = 4.0); Vitamin B12 468 pg/mL (200-900)
[2024-12-08 09:06] LABS: HBS Num1 2.56 mIU/mL (0-7.99); HBsAGNum1 0.55 S/CO (0.00-0.99); HIV Num 1 0.07 S/CO (0.00-0.99); Hepatitis B Surface Antigen Negative (Negative); ~HepC Num1 0.07 S/CO (0.00-0.79); ~Hepatitis B Surface Antibody NONREACTIVE (Nonreactive); ~Hepatitis C Antibody Nonreactive (Nonreactive)
[2024-12-11 19:28] LABS: VITAMIN D (1,25 OH) D3 30 pg/mL; Vit D (1,25-Dihydroxy) Total 30 pg/mL (18-72); Vitamin D (1,25 OH) D2 <8 pg/mL
== END 2024-12-07 09:56 | disposition home or self-care (01) ==
LOC: HO.HKASLDS 09:55
PROVIDERS: PCP Student in an Organized Health Care Education/Training Program; Visit Provider Student in an Organized Health Care Education/Training Program
DX: M21.41 Flat foot [pes planus] (acquired), right foot (principal); M20.41 Other hammer toe(s) (acquired), right foot; M21.70 Unequal limb length (acquired), unspecified site; M77.41 Metatarsalgia, right foot; M06.9 Rheumatoid arthritis, unspecified; M79.671 Pain in right foot; M79.672 Pain in left foot; M20.11 Hallux valgus (acquired), right foot; M20.12 Hallux valgus (acquired), left foot; M21.40 Flat foot [pes planus] (acquired), unspecified foot; M77.40 Metatarsalgia, unspecified foot; Z76.89 Persons encountering health services in other specified circumstances; Z11.4 Encounter for screening for human immunodeficiency virus [HIV]; Z13.1 Encounter for screening for diabetes mellitus
CPT/HCPCS: 36415; 80053; 81003; 82607; 82652; 82746; 83036; 83735; 85025; 86706; 86803; 87340; 87389

== ENCOUNTER 2025-01-04 12:57 | Outpatient (AMB) | payer OTHER, SELFPAY ==
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
[2025-01-04 13:05] VITALS: BP 155/86; PULSE 67; RESP 16; TEMP 36.6; O2SAT 96
--- OUTSIDE RECORDS SUMMARY | 2025-01-04 15:53 | XMS_ITS ---
Author Name Chantel FloresNatalie Address [address] [place] [id number] Phone [phone] Organization [facility] Care Team Providers Care Manipulator Operator Name Role Phone Natalie Golden Unavailable [phone] Reason for Referral Not Available Allergies, adverse [...] mplaint new patient, moderate complexity office visit [facility], [facility] 06/08/2024 Rheumatoid arthritis without rheumatoid factor, unspecified sitePain in right hipPain in left hipSpinal stenosis, lumbar region without neurogenic claudicationRepeated fallsAsymptomatic menopausal stateDisorder of kidney and ureter, unspecified new patient, moderate complexity office visit [facility], [facility] 06/08/2024 Rheumatoid arthritis without rheumatoid factor, unspecified siteAsymptomatic menopausal state moderate complexity office visit [facility], [facility] 07/06/2024 Rheu arthrit w rheu factor o f unsp ank/ft w/o org/sys involvAbnormal results of kidney function studiesAge-related osteoporosis without current pathological fractureOther inadequate housing moderate complexity office visit [facility], [facility] 07/06/2024 Rheumatoid arthritis without rheumatoid factor, [...] tive Time Current Smoking Status Never smoker 6 Sex Female History of Procedures Procedures Service Procedure code Service date Servicing provider Phone# new patient, moderate complexity office visit 51314 2024-06-08 No Data Available No Data Availa ble (Add-on code) Visit complxty inherent to EM and management associated with medical care services that serve as the continuing focal point for all needed health care services Hive guard unlimited G22024-06-08 No Data Available No Data Availa ble moderate complexity office visit [id number] 2024-07-06 No Data Available No Data Availa ble (Add-on code) Visit complxty inherent to EM and management associated with medical care services that serve as the continuing focal point for all needed health care services Hive guard unlimited G22024-07-06 No Data Available No Data Availa ble Relevant diagnostic tests and/or laboratory data Laboratory Results Test Result Units Ref low Ref high Date Location Source MIKE SCREEN, IFA, W/REFL TITE R AND PATTERN MIKE SCREEN, IFA POSITIVE No Data Available NEGATIVE NEGATIVE 06-12 [facility] [address] [address] Phone: No Data Available MIKE SCREEN, IFA POSITIVE No Data Available NEGATIVE NEGATIVE 06-12 [facility] [address] [address] Phone: No Data Available ANTINUCLEAR ANTIBODIES TITER AND PATTERN MIKE TITER 1:40 No Data Available N/A N/A 06-12 [facility] [address] [address] Phone: No Data Available MIKE TITER 1:40 No Data Available N/A N/A 06-12 [facility] [address] [address] Phone: No Data Available MIKE PATTERN Cytoplasmic No Data Available N/A N/A 06-12 [facility] [address] [address] Phone: No Data Available MIKE PATTERN Cytoplasmic No Data Available N/A N/A 06-12 [facility] [address] [address] Phone: No Data Available MIKE TITER 1:80 No Data Available N/A N/A 06-12 [facility] [address] [address] Phone: No Data Available MIKE TITER 1:80 No Data Available N/A N/A 06-12 [facility] [address] [address] Phone: No Data Available MIKE PATTERN Nuclear, Homogeneous No Data Available N/A N/A 06-12 [facility] [address] [address] Phone: No Data Available MIKE PATTERN Nuclear, Homogeneous No Data Available N/A N/A 06-12 [facility] [address] [address] Phone: No Data Available C TELOPEPTIDE (CTX) C TELOPEPTIDE (CTX) 566 pg/mL N/A N/A 06-12 [facility] s/[address] [address] Phone: No Data Available C TELOPEPTIDE (CTX) 566 pg/mL N/A N/A 06-12 [facility] s/[facility] , [address] [place] [address] Phone: No Data Available C-REACTIVE PROTEIN C-REACTIVE PROTEIN 3.2 mg/L No Data Available 8.0 06-12 [facility] [address] [address] Phone: No Data Available C-REACTIVE PROTEIN 3.2 mg/L No Data Available 8.0 06-12 [facility] s-[address] [address] Phone: No Data Available CALCIUM CALCIUM 10.3 mg/dL 8.6 10.4 06-12 [facility] [address] [address] Phone: No Data Available CALCIUM 10.3 mg/dL 8.6 10.4 06-12 [facility] [address] [address] Phone: No Data Available CBC (INCLUDES DIFF/PLT) WHITE BLOOD CELL COUNT 4.9 Thousand/uL 3.8 10.8 06-12 [facility] [address] [address] Phone: No Data Available WHITE BLOOD CELL COUNT 4.9 Thousand/uL 3.8 10.8 06-12 [facility] [address] [address] Phone: No Data Available RED BLOOD CELL COUNT 4.25 Million/uL 3.80 5.10 06-12 [facility] [address] [address] Phone: No Data Available RED BLOOD CELL COUNT 4.25 Million/uL 3.80 5.10 06-12 [facility] [address] [address] Phone: No Data Available HEMOGLOBIN 12.3 g/dL 11.7 15.5 06-12 [facility] [address] [address] Phone: No Data Available HEMOGLOBIN 12.3 g/dL 11.7 15.5 06-12 [facility] [address] [address] Phone: No Data Available HEMATOCRIT 39.9 % 35.0 45.0 06-12 [facility] [address] [address] Phone: No Data Available HEMATOCRIT 39.9 % 35.0 45.0 06-12 [facility] [address] [address] Phone: No Data Available MCV 93.9 fL 80.0 100.0 06-12 [facility] [address] [address] Phone: No Data Available MCV 93.9 fL 80.0 100.0 06-12 [facility] [address] [address] Phone: No Data Available MCH 28.9 pg 27.0 33.0 06-12 [facility] [address] [address] Phone: No Data Available MCH 28.9 pg 27.0 33.0 06-12 [facility] [address] [address] Phone: No Data Available MCHC 30.8 g/dL 32.0 36.0 06-12 [facility] [address] [address] Phone: No Data Available MCHC 30.8 g/dL 32.0 36.0 06-12 [facility] [address] [address] Phone: No Data Available RDW 13.1 % 11.0 15.0 06-12 [facility] [address] [address] Phone: No Data Available RDW 13.1 % 11.0 15.0 06-12 [facility] [address] [address] Phone: No Data Available PLATELET COUNT 278 Thousand/uL 140 400 202 06-12 [facility] [address] [address] Phone: No Data Available PLATELET COUNT 278 Thousand/uL 140 400 202 06-12 [facility] [address] [address] Phone: No Data Available MPV 12.1 fL 7.5 12.5 06-12 [facility] [address] [address] Phone: No Data Available MPV 12.1 fL 7.5 12.5 06-12 [facility] [address] [address] Phone: No Data Available ABSOLUTE NEUTROPHILS 3004 cells/uL 1500 7800 06-12 [facility] [address] [address] Phone: No Data Available ABSOLUTE NEUTROPHILS 3004 cells/uL 1500 7800 06-12 [facility] [address] [address] Phone: No Data Available ABSOLUTE LYMPHOCYTES 1142 cells/uL 850 3900 06-12 [facility] [address] [address] Phone: No Data Available ABSOLUTE LYMPHOCYTES 1142 cells/uL 850 3900 06-12 [facility] [address] [address] Phone: No Data Available ABSOLUTE MONOCYTES 515 cells/uL 155 629 0705- 04-14 [facility] [address] [address] Phone: No Data Available ABSOLUTE MONOCYTES 515 cells/uL 507 133 3398- 04-14 [facility] [address] [address] Phone: No Data Available ABSOLUTE EOSINOPHILS 191 cells/uL 15 500 06-12 [facility] [address] [address] Phone: No Data Available ABSOLUTE EOSINOPHILS 191 cells/uL 15 500 06-12 [facility] [address] [address] Phone: No Data Available ABSOLUTE BASOPHILS 49 cells/uL 0 200 06-12 [facility] [address] [address] Phone: No Data Available ABSOLUTE BASOPHILS 49 cells/uL 0 200 06-12 [facility] [address] [address] Phone: No Data Available NEUTROPHILS 61.3 % N/A N/A 06-12 [facility] [address] [address] Phone: No Data Available NEUTROPHILS 61.3 % N/A N/A 06-12 [facility] [address] [address] Phone: No Data Available LYMPHOCYTES 23.3 % N/A N/A 06-12 [facility] [address] [address] Phone: No Data Available LYMPHOCYTES 23.3 % N/A N/A 06-12 [facility] [address] [address] Phone: No Data Available MONOCYTES 10.5 % N/A N/A 06-12 [facility] [address] [address] Phone: No Data Available MONOCYTES 10.5 % N/A N/A 06-12 [facility] [address] [address] Phone: No Data Available EOSINOPHILS 3.9 % N/A N/A 06-12 [facility] [address] [address] Phone: No Data Available EOSINOPHILS 3.9 % N/A N/A 06-12 [facility] [address] [address] Phone: No Data Available BASOPHILS 1.0 % N/A N/A 06-12 [facility] [address] [address] Phone: No Data Available BASOPHILS 1.0 % N/A N/A 06-12 [facility] [address] [address] Phone: No Data Available CREATININE CREATININE 0.99 mg/dL 0.60 1.00 06-12 [facility] [address] [address] Phone: No Data Available CREATININE 0.99 mg/dL 0.60 1.00 06-12 [facility] [address] [address] Phone: No Data Available EGFR 59 mL/min/1.73 m2 > OR = 60 > OR = 60 06-12 [facility] [address] [address] Phone: No Data Available EGFR 59 mL/min/1.73 m2 > OR = 60 > OR = 60 06-12 [facility] [address] [address] Phone: No Data Available CYCLIC CITRULLINATED PEPTIDE (CCP) AB (IGG) CYCLIC CITRULLINATED PEPTIDE (CCP) AB (IGG) 139 UNITS N/A N/A 06-12 [facility] [address] [address] Phone: No Data Available CYCLIC CITRULLINATED PEPTIDE (CCP) AB (IGG) 139 UNITS N/A N/A 06-[address] [facility] [address] [address] Phone: No Data Available HEPATIC FUNCTION PANEL PROTEIN, TOTAL 6.9 g/dL 6.1 8.1 06-12 [facility] [address] [address] Phone: No Data Available PROTEIN, TOTAL 6.9 g/dL 6.1 8.1 06-[address] [facility] [address] [address] Phone: No Data Available ALBUMIN 4.2 g/dL 3.6 5.1 06-12 [facility] [address] [address] Phone: No Data Available ALBUMIN 4.2 g/dL 3.6 5.1 06-12 [facility] [address] [address] Phone: No Data Available GLOBULIN 2.7 g/dL_(calc) 1.9 3.7 06-12 [facility] [address] [address] Phone: No Data Available GLOBULIN 2.7 g/dL_(calc) 1.9 3.7 06-12 [facility] [address] [address] Phone: No Data Available ALBUMIN/GLOBULI N RATIO 1.6 (calc) 1.0 2.5 06-12 [facility] [address] [address] Phone: No Data Available ALBUMIN/GLOBULI N RATIO 1.6 (calc) 1.0 2.5 06-12 [facility] [address] [address] Phone: No Data Available BILIRUBIN, TOTAL 0.6 mg/dL 0.2 1.2 06-12 [facility] [address] [address] Phone: No Data Available BILIRUBIN, TOTAL 0.6 mg/dL 0.2 1.2 06-12 [facility] [address] [address] Phone: No Data Available BILIRUBIN, DIRECT 0.1 mg/dL N/A N/A 06-12 [facility] [address] [address] Phone: No Data Available BILIRUBIN, DIRECT 0.1 mg/dL N/A N/A 06-12 [facility] [address] [address] Phone: No Data Available BILIRUBIN, INDIRECT 0.5 mg/dL_(calc ) 0.2 1.2 06-12 [facility] [address] [address] Phone: No Data Available BILIRUBIN, INDIRECT 0.5 mg/dL_(calc ) 0.2 1.2 06-12 [facility] [address] [address] Phone: No Data Available ALKALINE PHOSPHATASE 95 U/L 37 153 06-12 [facility] [address] [address] Phone: No Data Available ALKALINE PHOSPHATASE 95 U/L 37 153 06-12 [facility] [address] [address] Phone: No Data Available AST 25 U/L 10 35 06-12 [facility] [address] [address] Phone: No Data Available AST 25 U/L 10 35 06-12 [facility] [address] [address] Phone: No Data Available ALT 13 U/L 6 29 06-12 [facility] [address] [address] Phone: No Data Available ALT 13 U/L 6 29 06-12 [facility] [address] [address] Phone: No Data Available HEPATITIS B CORE AB TOTAL HEPATITIS B CORE AB TOTAL NON-REACTIVE No Data Available NON NON 06-12 [facility] [address] [address] Phone: No Data Available HEPATITIS B CORE AB TOTAL NON-REACTIVE No Data Available NON NON 06-12 [facility] [address] [address] Phone: No Data Available HEPATITIS B SURFACE ANTIBODY QL HEPATITIS B SURFACE ANTIBODY QL NON-REACTIVE No Data Available NON NON 06-12 [facility] [address] [address] Phone: No Data Available HEPATITIS B SURFACE ANTIBODY QL NON-REACTIVE No Data Available NON NON 06-12 [facility] [address] [address] Phone: No Data Available HEPATITIS B SURFACE ANTIGEN W/REFL CONFIRM HEPATITIS B SURFACE ANTIGEN NON-REACTIVE No Data Available NON NON 06-12 [facility] [address] [address] Phone: No Data Available HEPATITIS B SURFACE ANTIGEN NON-REACTIVE No Data Available NON NON 06-12 [facility] [address] [address] Phone: No Data Available HEPATITIS C AB W/REFL TO HCV RNA, QN, PCR HEPATITIS C ANTIBODY NON-REACTIVE No Data Available NON NON 06-12 [facility] [address] [address] Phone: No Data Available HEPATITIS C ANTIBODY NON-REACTIVE No Data Available NON NON 06-12 [facility] [address] [address] Phone: No Data Available QUANTIFERON(R)-TB GOLD PLUS, 1 TUBE QUANTIFERON(R)- TB GOLD PLUS, 1 TUBE NEGATIVE No Data Available NEGATIVE NEGATIVE 06-12 [facility] [address] [address] Phone: No Data Available QUANTIFERON(R)- TB GOLD PLUS, 1 TUBE NEGATIVE No Data Available NEGATIVE NEGATIVE 06-12 [facility] [address] [address] Phone: No Data Available NIL 0.02 IU/mL N/A N/A 06-12 [facility] [address] [address] Phone: No Data Available NIL 0.02 IU/mL N/A N/A 06-12 [facility] [address] [address] Phone: No Data Available MITOGEN-NIL 7.47 IU/mL N/A N/A 06-12 [facility] [address] [address] Phone: No Data Available MITOGEN-NIL 7.47 IU/mL N/A N/A 06-12 [facility] [address] [address] Phone: No Data Available TB1-NIL 0.00 IU/mL N/A N/A 06-12 [facility] [address] [address] Phone: No Data Available TB1-NIL 0.00 IU/mL N/A N/A 06-12 [facility] [address] [address] Phone: No Data Available TB2-NIL 0.00 IU/mL N/A N/A 06-12 [facility] [address] [address] Phone: No Data Available TB2-NIL 0.00 IU/mL N/A N/A 06-12 [facility] [address] [address] Phone: No Data Available REFLEXIVE URINE CULTURE REFLEXIVE URINE CULTURE No Data Available No Data Available N/A N/A 06-12 [facility] [address] [address] Phone: No Data Available REFLEXIVE URINE CULTURE No Data Available No Data Available N/A N/A 06-12 [facility] [address] [address] Phone: No Data Available RHEUMATOID FACTOR RHEUMATOID FACTOR 86 IU/mL No Data Available 06-12 [facility] [address] [address] Phone: No Data Available RHEUMATOID FACTOR 86 IU/mL No Data Available 06-12 [facility] [address] [address] Phone: No Data Available SED RATE BY MODIFIED WESTERG OKSANA SED RATE BY MODIFIED WESTERGREN 28 mm/h N/A N/A 06-12 [facility] [address] [address] Phone: No Data Available SED RATE BY MODIFIED WESTERGREN 28 mm/h N/A N/A 06-12 [facility] [address] [address] Phone: No Data Available SJOGREN'S ANTIBODY (SS-A) SJOGREN'S ANTIBODY (SS-A) <1.0 NEG No Data Available N/A N/A 06-12 [facility] [address] [address] Phone: No Data Available SJOGREN'S ANTIBODY (SS-A) <1.0 NEG No Data Available N/A N/A 06-12 [facility] [address] [address] Phone: No Data Available THYROID PEROXIDASE ANTIBODIE S THYROID PEROXIDASE ANTIBODIES <1 No Data Available No Data Available 9 06-12 [facility] [address] [address] Phone: No Data Available THYROID PEROXIDASE ANTIBODIES <1 No Data Available No Data Available 9 06-12 [facility] [address] [address] Phone: No Data Available URINALYSIS, COMPLETE W/REFLE X TO CULTURE COLOR DARK YELLOW No Data Available YELLOW YELLOW 06-[address] [facility] [address] [address] Phone: No Data Available COLOR DARK YELLOW No Data Available YELLOW YELLOW 06-12 [facility] [address] [address] Phone: No Data Available APPEARANCE CLEAR No Data Available CLEAR CLEAR 06-12 [facility] [address] [address] Phone: No Data Available APPEARANCE CLEAR No Data Available CLEAR CLEAR 06-12 [facility] [address] [address] Phone: No Data Available SPECIFIC GRAVITY 1.041 No Data Available 1.001 1.035 06-12 [facility] [address] [address] Phone: No Data Available SPECIFIC GRAVITY 1.041 No Data Available 1.001 1.035 06-12 [facility] [address] [address] Phone: No Data Available PH < OR = 5.0 No Data Available 5.0 8.0 06-12 [facility] [address] [address] Phone: No Data Available PH < OR = 5.0 No Data Available 5.0 8.0 06-12 [facility] [address] [address] Phone: No Data Available Glucose NEGATIVE No Data Available NEGATIVE NEGATIVE 06-12 [facility] [address] [place] [address] Phone: No Data Available Glucose NEGATIVE No Data Available NEGATIVE NEGATIVE 06-12 [facility] [address] [place] [address] Phone: No Data Available BILIRUBIN NEGATIVE No Data Available NEGATIVE NEGATIVE 06-12 [facility] [address] [address] Phone: No Data Available BILIRUBIN NEGATIVE No Data Available NEGATIVE NEGATIVE 06-12 [facility] [address] [address] Phone: No Data Available KETONES TRACE No Data Available NEGATIVE NEGATIVE 06-12 [facility] [address] [address] Phone: No Data Available KETONES TRACE No Data Available NEGATIVE NEGATIVE 06-12 [facility] [address] [address] Phone: No Data Available OCCULT BLOOD NEGATIVE No Data Available NEGATIVE NEGATIVE 06-12 [facility] [address] [address] Phone: No Data Available OCCULT BLOOD NEGATIVE No Data Available NEGATIVE NEGATIVE 06-12 [facility] [address] [address] Phone: No Data Available PROTEIN TRACE No Data Available NEGATIVE NEGATIVE 06-12 [facility] [address] [address] Phone: No Data Available PROTEIN TRACE No Data Available NEGATIVE NEGATIVE 06-12 [facility] [address] [address] Phone: No Data Available NITRITE NEGATIVE No Data Available NEGATIVE NEGATIVE 06-12 [facility] [address] [address] Phone: No Data Available NITRITE NEGATIVE No Data Available NEGATIVE NEGATIVE 06-12 [facility] [address] [address] Phone: No Data Available LEUKOCYTE ESTERASE NEGATIVE No Data Available NEGATIVE NEGATIVE 06-12 [facility] [address] [address] Phone: No Data Available LEUKOCYTE ESTERASE NEGATIVE No Data Available NEGATIVE NEGATIVE 06-12 [facility] [address] [address] Phone: No Data Available WBC 0-5 No Data Available N/A N/A 06-12 [facility] [address] [address] Phone: No Data Available WBC 0-5 No Data Available N/A N/A 06-12 [facility] [address] [address] Phone: No Data Available RBC 0-2 No Data Available N/A N/A 06-12 [facility] [address] [address] Phone: No Data Available RBC 0-2 No Data Available N/A N/A 06-12 [facility] [address] [address] Phone: No Data Available SQUAMOUS EPITHELIAL CELLS 0-5 No Data Available N/A N/A 06-12 [facility] [address] [address] Phone: No Data Available SQUAMOUS EPITHELIAL CELLS 0-5 No Data Available N/A N/A 06-12 [facility] [address] [address] Phone: No Data Available BACTERIA NONE SEEN No Data Available NONE SEEN NONE SEEN 06-12 [facility] [address] [address] Phone: No Data Available BACTERIA NONE SEEN No Data Available NONE SEEN NONE SEEN 06-12 [facility] [address] [address] Phone: No Data Available HYALINE CAST 0-5 No Data Available NONE SEEN NONE SEEN 06-12 [facility] [address] [address] Phone: No Data Available HYALINE CAST 0-5 No Data Available NONE SEEN NONE SEEN 06-12 [facility] [address] [address] Phone: No Data Available NOTE No Data Available No Data Available N/A N/A 06-12 [facility] [address] [address] Phone: No Data Available NOTE No Data Available No Data Available N/A N/A 06-12 [facility] [address] [address] Phone: No Data Available Functional Status No Information Mental Status No Information Assessments Date of Service Assessments 2024-06-08 14:00:00 # Seropositive rheum atoid arthritis, diagnosed in the by previous administrative nursing supervisor in [facility]. Was followed by Dr. Munoz in 2018 when patient relocated to [place]. Tried multiple treatments as detailed above including [...] atoid arthritis, diagnosed in the by previous administrative nursing supervisor in [facility]. 05/2024 labs with +MIKE 1:40 cytoplasmic and 1:80 nuclear, homogenous; RF 86; CCP 139. Was followed by Dr. Munoz in 2018 when patient relocated to [place]. Tried multiple treatments as detailed above including [...] 2024-06-08 15:07:42 Thyroid Peroxidase A ntibodies (anti-TPO) (7926) 2024-06-08 15:07:42 Sj gren's Antibody (SS-A) (60912) 2024-06-08 15:07:42 Cyclic Citrullinated Peptide (CCP) Antibody (IgG) (45620) 2024-06-08 15:07:42 Rheumatoid Factor (1 12045M) 2024-06-08 15:07:42 C TELOPEPTIDE (CTX) (96180) 2024-06-08 15:07:42 C-Reactive Protein ( CRP) (4420) 2024-06-08 15:07:42 Hepatitis B Surface Antigen with Reflex to Confirmation (498) 2024-06-08 15:07:42 Hepatitis B Surface Antibody, Qualitative (499) 2024-06-08 15:07:42 Hepatitis B Core Ant ibody, Total (501) 2024-06-08 15:07:42 Hepatitis C Antibody with Reflex to HCV, RNA, Quantitative, Real-Time PCR (2172) 2024-06-08 15:07:42 serum calcium 2024-06-08 15:07:42 CBC [...] clinical trials and provided rheumatology clinics in [place] where she may be moving to to [...] the next visit or with her next administrative nursing supervisor should she leave this area. All of patient's questions were answered. # Continue to follow up with ortho for lumbar spinal stenosis with radiculopathy. She was considering surgical intervention.# Monitor kidney function. Low GFR 49 in 04/2024 labs that improved in 05/2024 labs. Labs in 4 weeks Samples Rinvoq x 2 bottles ([id number], 01/2026) Provided contact info to [facility] [place] printed5 weeks (patient will call to cancel if moving to [place])Patient checked out by Annabelle Leiva. Patient seen by Blanca Espitia PA-C and Natalie Golden MD Electronically signed by Blanca Espitia PA-C at 5:31 PM , July 06, 2024 (This note was dictated by speech recognition software. 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 Please do not hesitate [...] We decided to provide her samples with [employer]. Side effects discussed with her. She has no contraindications to initiate a drug. If she is tolerating well with improvement, she will obtain labs in 4 weeks and call us for additional samples. We also discussed clinical trials and provided rheumatology clinics in [place] where she may be moving to to [...] the next visit or with her next administrative nursing supervisor should she leave this area. All of [...] # Patient may not be staying in [facility] and may plan to relocate to [place] soon== RHEUM LABS/OTHER SEROLOGIES ==05/2024+ MIKE 1:40 [...] Gold injections = in the -methotrexate oral (~8955-9229) = nausea, hair loss, GI issuesmethotrexate subQ [...]
== END 2025-01-04 13:26 | disposition home or self-care (01) ==
LOC: HO.HMCFMS 12:58
PROVIDERS: PCP Student in an Organized Health Care Education/Training Program; Visit Provider Student in an Organized Health Care Education/Training Program
DX: M06.9 Rheumatoid arthritis, unspecified (principal); N18.9 Chronic kidney disease, unspecified; E78.00 Pure hypercholesterolemia, unspecified; R03.0 Elevated blood-pressure reading, without diagnosis of hypertension; K21.9 Gastro-esophageal reflux disease without esophagitis

== ENCOUNTER 2025-01-30 10:51 | Outpatient (AMB) | payer OTHER, SELFPAY ==
[2025-01-30 10:54] VITALS: BP 130/76; PULSE 72; O2SAT 96; BMI 30.2
--- NOTE | 2025-01-30 10:54 | MHC.OFFVIS ---
Vital Signs 01/30/25 10:54 Height 5 ft 2 in Weight 165 lb 5.547 oz BMI 30.2 BP 130/76 Blood Pressure Location Lt brachial Position Sitting Pulse 72 Pulse Source Pulse Oximeter Pulse Oximetry (%) 96 Oxygen Delivery Method Room Air Intake Visit Reasons: Rheumatoid arthritis/New Patient Intake Note: Patient is a new patient, internally referred by PCP, Dr. Collier for Rheumatoid arthritis. Patient has left sided hip pain for month beside, her hands are painful, can't wash or blow dry her hair, she uses paper cups, because her utensils are too heavy. Tank Farm Gauger Required: No Accompanied by: Daughter Allergies codeine Allergy (Mild, Verified 01/30/25 11:02) Nausea latex Allergy (Mild, Verified 01/30/25 11:02) Rash levofloxacin (From Levaquin) Allergy (Mild, Verified 01/30/25 11:02) Nausea and Vomiting methotrexate Allergy (Mild, Verified 01/30/25 11:02) Nausea morphine Allergy (Mild, Verified 01/30/25 11:02) advers reaction mupirocin (From Bactroban) Allergy (Mild, Verified 01/30/25 11:02) Rash HPI Comments Details: 79-YEAR-OLD FEMALE WITH A HISTORY of erosive deforming arthritis, hypercholesterolemia, bilateral knee replacement, hypertension coming in as a new patient for the treatment of her underlying rheumatoid arthritis. Patient reports that she has recently moved from [place] and she lives with her daughter. Over there she had a engineering documentation specialist who was treating her rheumatoid arthritis. She reports that she has previously been on methotrexate, Humira and Enbrel which were ineffective and apparently due to injecting the TNF inhibitors in her stomach she had holes in her stomach on ultrasound. Currently she is on leflunomide 20 mg daily and she reports ongoing joint pain swelling and stiffness mainly in the hands wrists shoulders in her neck and hips. Morning stiffness lasts for hours. 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 She also has limitation in the range of motion in the neck, with severe scoliosis of the spine She reports she was lasts enrolled in a clinical trial involving Rinvoq however she had 1 month supply and does not really know if it was effective in treating her joint pain ROS: SHE DENIES CHEST PAIN, shortness of breath. She endorses weakness and walks with a cane. no fevers, no diarreha no weight loss PATIENT REPORTS A HISTORY OF DIVERTICULITIS last colonoscopy was 10 years ago she does not report any history of malignancy, demyelinating disorders or heart failure PHYSICAL EXAM General: Comfortable CVS: RRR Respiratory: clear to auscultation bilaterally. Good respiratory effort Skin: No lesions seen MSK: PATIENT IS UNABLE to make fist bilaterally. She has deforming erosive arthritis, particularly right 2nd MCP is swollen red hot tender. Ulnar deviation of both hands noted bilaterally. On the right volar aspect of the wrist she has a nodule. Tenderness of the MCPs noted bilaterally She has limited range of motion in the shoulders. She has limited range of motion in the hips. Scoliotic spine Limited range of motion in the cervical spine There is deforming arthritis in the feet bilaterally, the right 2nd MTP overlapping the 1st right MTP. [facility] Medical History (Updated 01/30/25 @ 12:21 by Ariane Jacinto MD) GERD (gastroesophageal reflux disease) Elevated BP without diagnosis of hypertension Hypercholesterolemia Chronic kidney disease Hallux valgus Pain in both feet Metatarsalgia Leg length discrepancy Hammertoe Pes planus Rheumatoid arthritis Family History Father Diabetes Heart attack Mother Diabetes Stroke Social History (Updated 01/04/25 @ 13:05 by Waylon Birmingham CMA) Housing: House Alcohol intake: current Alcohol intake frequency: does not drink Patient Tobacco Use Status: Never used Tobacco service: No Current occupational status: retired and disabled Cognitive needs: Yes (cane and walker) Hearing needs: No Vision needs: Yes (rx glasses) Physical Exam Vital Signs: Last Vital Signs Pulse 72 01/30/25 10:54 BP 130/76 01/30/25 10:54 Pulse Ox 96 01/30/25 10:54 Oxygen Delivery Method Room Air 01/30/25 10:54 BMI result Body Mass Index 30.2 Assessment & Plan Assessment & Plan (1) Rheumatoid arthritis: Code(s): M06.9 - Rheumatoid arthritis, unspecified Category: Medical Qualifiers: Rheumatoid arthritis location: multiple sites Rheumatoid factor presence: unspecified presence Qualified Code(s): M06.9 - Rheumatoid arthritis, unspecified (2) Pain in both feet: Code(s): M79.671 - Pain in right foot; M79.672 - Pain in left foot Category: Medical (3) Leg length discrepancy: Code(s): M21.70 - Unequal limb length (acquired), unspecified site Category: Medical Plan: 79-YEAR-OLD FEMALE WITH A HISTORY of erosive deforming arthritis, hypercholesterolemia, bilateral knee replacement, hypertension coming in as a new patient for the treatment of her underlying rheumatoid arthritis. She reports that she has previously been on methotrexate, Humira and Enbrel which were ineffective For the evaluation of her rheumatoid arthritis I will recheck ESR CRP RF CCP lipid panel. I will request hand x-rays as well as x-rays of her cervical thoracic spine and hips. Given her longstanding rheumatoid arthritis I will also request an echocardiogram to rule out there is pulmonary hypertension as well as PFTs. I will not use IL-6 inhibitor given her history of her diverticulitis, I will start rinvoq 15 mg once daily in conjunction with leflunomide 20 mg daily We will repeat labs including CBC CMP ESR CRP 1 month after initiation of rinvoq 15 mg one daily. Patient also prefers oral medication rather than injectables/infusions. #Long-term Use of JERRELL inhibitors: Xeljanz (Tofacitinib)/ Rinvoq (Upadacitinib)/ Olumiant (Baricitinib) Discussed with patient the benefits and risks of JERRELL inhibitors for the management of the rheumatic condition Benefits include reduce pain, maintenance of remission and reduction of flares Risks include thromboembolic events, skin cancer and nonmelanoma skin cancers, other forms of cancer, cardiovascular alcohol and mortality Advise patient that they are to hold the medication and for up to 1 week after a febrile illness or an open skin wound f/up in 3 weeks to discuss lab work I will also refer her to orthopedics given her leg length discrepancy and pain in bilateral hips to explore surgical options. Plan 79-YEAR-OLD FEMALE WITH A HISTORY of erosive deforming arthritis, hypercholesterolemia, bilateral knee replacement, hypertension coming in as a new patient for the treatment of her underlying rheumatoid arthritis. She reports that she has previously been on methotrexate, Humira and Enbrel which were ineffective For the evaluation of her rheumatoid arthritis I will recheck ESR CRP RF CCP lipid panel. I will request hand x-rays as well as x-rays of her cervical thoracic spine and hips. Given her longstanding rheumatoid arthritis I will also request an echocardiogram to rule out there is pulmonary hypertension as well as PFTs. I will not use IL-6 inhibitor given her history of her diverticulitis, I will start rinvoq 15 mg once daily in conjunction with leflunomide 20 mg daily We will repeat labs including CBC CMP ESR CRP 1 month after initiation of rinvoq 15 mg one daily. Patient also prefers oral medication rather than injectables/infusions. #Long-term Use of JERRELL inhibitors: Xeljanz (Tofacitinib)/ Rinvoq (Upadacitinib)/ Olumiant (Baricitinib) Discussed with patient the benefits and risks of JERRELL inhibitors for the management of the rheumatic condition Benefits include reduce pain, maintenance of remission and reduction of flares Risks include thromboembolic events, skin cancer and nonmelanoma skin cancers, other forms of cancer, cardiovascular alcohol and mortality Advise patient that they are to hold the medication and for up to 1 week after a febrile illness or an open skin wound f/up in 3 weeks to discuss lab work I will also refer her to orthopedics given her leg length discrepancy and pain in bilateral hips to explore surgical options. Orders: Orders C Reactive Protein Today Z79.60 - bed bug exterminator (current) use of unspecified immunomodulators and immunosuppressants Quantiferon TB Gold Plus 1 Today Z79.899 - Other terminal manager (current) drug therapy XR cervical spine 2V Today M06.9 - Rheumatoid arthritis, unspecified XR hip BI w PEL1V Today M06.9 - Rheumatoid arthritis, unspecified CA Echo Limited Today M06.9 - Rheumatoid arthritis, unspecified Erythrocyte Sedimentation Rate Today Z79.60 - bed bug exterminator (current) use of unspecified immunomodulators and immunosuppressants Rheumatoid Factor Today M06.9 - Rheumatoid arthritis, unspecified Cyclic Citrullinated Peptide Today M06.9 - Rheumatoid arthritis, unspecified XR Hand Edouard 2V Today M06.9 - Rheumatoid arthritis, unspecified PFT pulmonary function test Today M06.9 - Rheumatoid arthritis, unspecified Lipid Panel Today M06.9 - Rheumatoid arthritis, unspecified XR thoracic spine 1V Today M06.9 - Rheumatoid arthritis, unspecified Referrals Orthopedics Referral M06.9 - Rheumatoid arthritis, unspecified Medications: New upadacitinib ER (Rinvoq) 15 mg PO DAILY 30 tabs 2RF upadacitinib ER (Rinvoq) 15 mg PO DAILY 30 tabs 2RF Coding Level of Care Code New Pt Level 4 (71584) Diagnoses Rheumatoid arthritis involving multiple sites, unspecified whether rheumatoid factor present M06.9 Rheumatoid arthritis location: multiple sites Rheumatoid factor presence: unspecified presence Pain in both feet M79.671; M79.672 Leg length discrepancy M21.70
== END 2025-01-30 11:51 | disposition home or self-care (01) ==
LOC: HO.RHES 10:52
PROVIDERS: PCP Student in an Organized Health Care Education/Training Program; Visit Provider Student in an Organized Health Care Education/Training Program
DX: M06.9 Rheumatoid arthritis, unspecified (principal); M79.671 Pain in right foot; M79.672 Pain in left foot; M21.70 Unequal limb length (acquired), unspecified site
CPT/HCPCS: 99204

== ENCOUNTER 2025-01-30 10:51 | Outpatient (REF) | payer OTHER, SELFPAY ==
[2025-01-30 18:27] LABS: Cholesterol 179 mg/dL (<200); HDL Cholesterol 63 mg/dL (>40); Triglycerides 66 mg/dL (<150)
[2025-01-30 18:47] LABS: Erythrocyte Sedimentation Rate 42 MM/HR (0-20)
[2025-02-02 06:34] LABS: Quantiferon TB Gold Plus 1 NEGATIVE (NEGATIVE); TB Test (QFT) Mitogen -Nil 8.75 IU/mL; TB Test (QFT) Nil 0.02 IU/mL; TB Test (QFT) Plus TB1 -Nil 0.02 IU/mL; TB Test (QFT) Plus TB2 -Nil 0.04 IU/mL
== END 2025-01-30 10:52 | disposition home or self-care (01) ==
LOC: HO.HKASLDS 10:51
PROVIDERS: PCP Student in an Organized Health Care Education/Training Program; Visit Provider Student in an Organized Health Care Education/Training Program
DX: M06.9 Rheumatoid arthritis, unspecified (principal); M79.671 Pain in right foot; M79.672 Pain in left foot; M21.70 Unequal limb length (acquired), unspecified site; Z79.899 Other long term (current) drug therapy; Z79.60 Long term (current) use of unspecified immunomodulators and immunosuppressants
CPT/HCPCS: 36415; 80061; 85652; 86140; 86200; 86431; 86480